=== PATIENT | female | born 1940 | race Caucasian/White ===

== ENCOUNTER 2016-10-11 17:09 | Inpatient (IN) ==
[2016-10-11] MEDS ORDERED: Nitroglycerin 0.4 MG TAB.SUBL SL PRN (17:55)
[2016-10-11] MEDS ORDERED: PredniSONE 10 MG TABLET PO SCH (18:00)
[2016-10-11] MEDS ORDERED: NON-FORMULARY MEDICATION 1 EACH EACH (Formoterol Fumarate [Perforomist] 20 MCG) IH SCH (18:00)
[2016-10-11] MEDS ORDERED: NON-FORMULARY MEDICATION 1 EACH EACH (Oxygen [Oxygen] 2 L) NS SCH (18:00)
[2016-10-11] MEDS: Ipratropium Neb 0.5 MG NEBULIZER IH SCH ×2 (18:48→22:43)
[2016-10-11] MEDS ORDERED: GuaiFENesin/Codeine Oral Soln 5 ML UDC PO PRN (19:23)
[2016-10-11] MEDS: *HR* LORazepam 0.5 MG TABLET PO SCH (21:21)
[2016-10-11] MEDS: Levalbuterol Neb 1.25 MG/3 ML IH SCH (22:43)
[2016-10-12] MEDS: Levalbuterol Neb 1.25 MG/3 ML IH SCH ×6 (00:03→21:15)
[2016-10-12] MEDS: Ipratropium Neb 0.5 MG NEBULIZER IH SCH ×6 (00:03→21:15)
[2016-10-12 05:39] LABS: Basophils % 0.1 %; Eosinophils % 0.2 %; Hematocrit 29.8 % (35.3-44.9); Hemoglobin 9.7 g/dL (11.5-15.4); Immature Granulocytes % 1.7 % (0-4); Lymphocytes % 18.6 %; Mean Corpuscular HGB Conc 32.6 g/dL (31.6-35.5); Mean Corpuscular Hemoglobin 31.6 pg (28.0-33.3); Mean Corpuscular Volume 97.1 fL (83.0-100.0); Mean Platelet Volume 8.9 fL (9.4-12.4); Monocytes # 0.9 K/mcL (0.0-1.3); Monocytes % 8.4 %; Neutrophils # 7.7 K/mcL (1.6-8.9); Platelet Count 204 K/mcL (140-400); Red Blood Count 3.07 M/mcL (3.82-4.97); Red Cell Distribution Width 12.3 % (11.5-14.5)
[2016-10-12 05:48] LABS: BUN/Creatinine Ratio 28 (6-26); Blood Urea Nitrogen 20 mg/dL (7-20); Calcium 8.9 mg/dL (8.6-10.8); Carbon Dioxide 34 mEq/L (19-29); Chloride 94 mEq/L (98-109); Glucose 136 mg/dL (70-99); Osmolality,Calculated 283 (280-300); Potassium 4.5 mEq/L (3.5-4.5); Sodium 134 mEq/L (136-145); eGFR For African Americans > 60 (> 60); eGFR For Non-African Americans > 60 (> 60)
[2016-10-12] MEDS ORDERED: [UNRECOGNIZED DRUG - OTHER] IH SCH (06:00)
[2016-10-12] MEDS: FORMOTEROL IH SCH ×2 (06:36→19:17)
[2016-10-12] MEDS: Aspirin Enteric Coated 81 MG Tablet PO SCH (08:52)
[2016-10-12] MEDS: Furosemide 20 MG TABLET PO SCH (08:52)
[2016-10-12] MEDS: Multivit/Ca/Min/Fe/FA 1 TAB TABLET PO SCH (08:52)
[2016-10-12] MEDS: Loratadine 10 MG TABLET PO SCH (08:53)
[2016-10-12] MEDS: Metoprolol XL (24 HR) Succ 50 MG TAB.ER.24H PO SCH (08:53)
[2016-10-12] MEDS: *HR* LORazepam 0.5 MG TABLET PO SCH ×2 (08:53→21:15)
[2016-10-12] MEDS: PredniSONE 10 MG TABLET PO SCH (08:54)
[2016-10-12] MEDS: VITAMIN D3 PO SCH (08:54)
[2016-10-12] MEDS: CALCIUM CARBONATE PO SCH (08:54)
[2016-10-12] MEDS: GuaiFENesin/Codeine Oral Soln 5 ML UDC PO PRN ×2 (08:59→21:15)
[2016-10-12] MEDS: Fluticasone Propionate Nasal 50 MCG/SPRAY BOTTLE NS SCH (09:00)
--- NOTE | 2016-10-12 13:17 | Internal Med History&Physical ---
Date of Encounter: 10/12/16 Time of Encounter: 13:15 Assessment and Plan (1) Acute on chronic congestive heart failure Current visit: Yes Status: Acute Patient was diagnosed with congestive heart failure she has been diuresed and according to her her breathing is probably close to baseline Qualifiers: Congestive heart failure type: diastolic Qualified Code(s): I50.33 - Acute on chronic diastolic (congestive) heart failure (2) Acute and chronic respiratory failure Current visit: Yes Status: Chronic Bid COPD by history. Patient is oxygen dependent Qualifiers: Respiratory failure complication: hypoxia and hypercapnia Qualified Code(s) : J96.21 - Acute and chronic respiratory failure with hypoxia; J96.22 - Acute and chronic respiratory failure with hypercapnia Internal Medicine - H&P: HPI Chief complaint: Patient was deconditioned from COPD and CHF. Admitted From: Hospital to Hospital Transfer Plans for Post Hospital Care: Home History of present illness: Ms. Currie is a 75 year old female Recent severe for OT and PT increase her strength and endurance. Past Med Surg Social Fam HX - Past Medical History Medical history: CHF, COPD, diabetes, hyperlipidemia, hypertension, myocardial infarction Psychiatric history: anxiety - Past Surgical History Surgical History: angioplasty/stent, appendectomy, hysterectomy - Social History Smoking Status: Former smoker Smokeless Tobacco Status: No Alcohol use: none Drug use: none - Family History Father Living Status: Hx Family Cardiac Disorders: Yes Mother Living Status: Hx Family Cardiac Disorders: Yes Hx Family Respiratory Disorders: Yes Hx Family GI Disorders: Yes Internal Medicine - H&P: Meds Aspirin Enteric Coated [Aspirin EC] 81 mg PO DAILY 09/07/15 [History] Calcium Carbonate/Vitamin D3 [Calcium 600-Vit D3 800 Tablet] 1 each PO DAILY 10/22 [History] Clopidogrel [Plavix] 75 mg PO DAILY 09/07/15 [History] Furosemide [Lasix] 20 mg PO QAM 09/07/15 [History] HydrALAZINE 50 mg PO BID 09/07/15 [History] Levalbuterol Neb [Xopenex Neb] 1.25 mg IH Q4HR 09/07/15 [History] Loratadine [Claritin] 10 mg PO DAILY 09/07/15 [History] Losartan [Cozaar] 50 mg PO DAILY 09/07/15 [History] Multivitamin [Multi-Day Vitamins] 1 each PO DAILY 09/07/15 [History] Nitroglycerin [Nitrostat] 0.4 mg SL AD PRN 09/07/15 [History] Pravastatin Sodium [Pravachol] 40 mg PO DAILY 09/07/15 [History] Sotalol [Betapace] 80 mg PO Q12HR 09/07/15 [History] Fluticasone Propionate Nasal [Flonase] 50 mcg NS DAILY 05/08/16 [History] LORazepam [Ativan] 0.5 mg PO BID 05/08/16 [History] Metoprolol XL (24 HR) Succ [Toprol Xl] 50 mg PO DAILY 05/08/16 [History] Oxygen 2 l NS CONT 05/08/16 [History] GuaiFENesin ER [Mucinex] 600 mg PO BID PRN #20 tbbp.12hr 05/11/16 [Rx] HYDROcodone/Acet 5/325 mg [[place] 5-325 mg] 1 tab PO Q6HR PRN #15 tablet [Rx] Formoterol Fumarate [Perforomist] 20 mcg IH Q4H 10/03/16 [History] Ipratropium Neb [Atrovent Neb] 0.5 mg IH Q4H 10/03/16 [History] Tizanidine HCl 2 mg PO TID PRN 10/03/16 [History] PredniSONE 10 mg PO TAPER #30 tablet 10/07/16 [Rx] Allergies JESSICA Inhibitors Allergy (Verified 05/08/16 18:41) See Comments budesonide [From Symbicort] Allergy (Verified 05/08/16 18:41) Swelling of Lip/Tongue/Throat Cyclobenzaprine [From Flexeril] Allergy (Verified 05/08/16 18:41) Anaphylaxis ethacrynic acid [From Edecrin] Allergy (Verified 05/08/16 18:41) See Comments lisinopril [From Zestoretic] Allergy (Verified 05/08/16 18:41) See Comments moxifloxacin [From Avelox] Allergy (Verified 05/08/16 18:41) See Comments amlodipine [From Norvasc] Adverse Reaction (Verified 05/08/16 18:41) Diarrhea aspirin Adverse Reaction (Verified 05/08/16 18:41) See Comments azithromycin [From Zithromax] Adverse Reaction (Verified 05/08/16 18:41) Diarrhea citalopram [From Celexa] Adverse Reaction (Verified 05/08/16 18:41) See Comments fluticasone [From Advair Diskus] Adverse Reaction (Verified 05/08/16 18:41) Confusion Formoterol [From Dulera] Adverse Reaction (Verified 05/08/16 18:41) Muscle Pain gabapentin [From Neurontin] Adverse Reaction (Verified 05/08/16 18:41) Headache hydrochlorothiazide Adverse Reaction (Verified 05/08/16 18:41) See Comments levofloxacin [From Levaquin] Adverse Reaction (Verified 05/08/16 18:41) See Comments losartan [Losartan] Adverse Reaction (Verified 05/08/16 18:41) Diarrhea mometasone furoate [From Dulera] Adverse Reaction (Verified 05/08/16 18:41) Muscle Pain ofloxacin Adverse Reaction (Verified 05/08/16 18:41) Headache prednisone Adverse Reaction (Verified 05/08/16 18:41) See Comments rofecoxib [From Vioxx] Adverse Reaction (Verified 05/08/16 18:41) Nausea salmeterol [From Advair Diskus] Adverse Reaction (Verified 05/08/16 18:41) Confusion Serotonin 5HT-3 Antagonists Adverse Reaction (Verified 05/08/16 18:41) See Comments Sulfa (Sulfonamide Antibiotics) Adverse Reaction (Verified 05/08/16 18:41) Nausea tiotropium [From Spiriva with HandiHaler] Adverse Reaction (Verified 05/08/16 18 :41) See Comments tramadol Adverse Reaction (Verified 05/08/16 18:41) See Comments All Systems PM: A 10-system review of systems was performed and is negative for pertinent findings except as documented above in the HPI. - Constitutional Vitals: Temp Pulse Resp BP Pulse Ox 98.2 F 99 16 136/82 97 10/12/16 11:48 10/12/16 11:48 10/12/16 11:48 10/12/16 11:48 10/12/16 11:48 - Head Head exam: Present: atraumatic, normocephalic - Neck Neck exam general surgery: Present: supple, trachea midline. Absent: lymphadenopathy - Respiratory Respiratory exam: Present: decreased breath sounds, CTAB, prolonged expiratory phase. Absent: accessory muscle use, rales, rhonchi, wheezes Additional comments: Patient has very diminished breath sounds. They are clear though right now I did not appreciate any rhonchi or wheezing - Cardiovascular Cardiovascular exam: Present: RRR, +S1, +S2. Absent: diastolic murmur, gallop, rubs, systolic murmur Internal Med - H&P Results - Labs CBC & Chem 7: 10/12/16 05:20 10/12/16 05:20 Labs: Short CBC 10/12/16 Range/Units 05:20 WBC 10.8 (4.3-11.1) K/mcL Hgb 9.7 L (11.5-15.4) g/dL Hct 29.8 L (35.3-44.9) % Plt Count 204 (140-400) K/mcL Neutrophils # 7.7 (1.6-8.9) K/mcL BMP 10/12/16 05:20 Sodium 134 L Potassium 4.5 Chloride 94 L Carbon Dioxide 34 H BUN 20 Creatinine 0.71 Glucose 136 H Calcium 8.9 Lab appears to be tolerable - VTE Documentation of Mechanical Device: Graduated compression elastic hosiery
[2016-10-12] MEDS: *HR* HYDROcodone/Acet 5/325 mg TABLET PO PRN (21:15)
[2016-10-13] MEDS: Ipratropium Neb 0.5 MG NEBULIZER IH SCH ×6 (00:23→20:41)
[2016-10-13] MEDS: Levalbuterol Neb 1.25 MG/3 ML IH SCH ×6 (00:23→20:41)
[2016-10-13] MEDS: *HR* HYDROcodone/Acet 5/325 mg TABLET PO PRN ×2 (06:47→20:40)
[2016-10-13] MEDS: FORMOTEROL IH SCH ×2 (06:47→18:46)
[2016-10-13] MEDS: PredniSONE 10 MG TABLET PO SCH (08:32)
[2016-10-13] MEDS: Metoprolol XL (24 HR) Succ 50 MG TAB.ER.24H PO SCH (08:32)
[2016-10-13] MEDS: Multivit/Ca/Min/Fe/FA 1 TAB TABLET PO SCH (08:33)
[2016-10-13] MEDS: Loratadine 10 MG TABLET PO SCH (08:33)
[2016-10-13] MEDS: Aspirin Enteric Coated 81 MG Tablet PO SCH (08:33)
[2016-10-13] MEDS: Furosemide 20 MG TABLET PO SCH (08:33)
[2016-10-13] MEDS: *HR* LORazepam 0.5 MG TABLET PO SCH ×2 (08:33→20:40)
[2016-10-13] MEDS: Fluticasone Propionate Nasal 50 MCG/SPRAY BOTTLE NS SCH (08:34)
[2016-10-13] MEDS: VITAMIN D3 PO SCH (08:35)
[2016-10-13] MEDS: CALCIUM CARBONATE PO SCH (08:35)
[2016-10-13] MEDS: GuaiFENesin/Codeine Oral Soln 5 ML UDC PO PRN (20:41)
[2016-10-14] MEDS: Ipratropium Neb 0.5 MG NEBULIZER IH SCH ×6 (01:11→22:16)
[2016-10-14] MEDS: Levalbuterol Neb 1.25 MG/3 ML IH SCH ×6 (01:11→22:16)
[2016-10-14] MEDS: FORMOTEROL IH SCH ×2 (06:45→20:06)
[2016-10-14] MEDS: *HR* HYDROcodone/Acet 5/325 mg TABLET PO PRN (06:45)
[2016-10-14] MEDS: PredniSONE 10 MG TABLET PO SCH (08:22)
[2016-10-14] MEDS: Multivit/Ca/Min/Fe/FA 1 TAB TABLET PO SCH (08:22)
[2016-10-14] MEDS: Metoprolol XL (24 HR) Succ 50 MG TAB.ER.24H PO SCH (08:23)
[2016-10-14] MEDS: Loratadine 10 MG TABLET PO SCH (08:23)
[2016-10-14] MEDS: Furosemide 20 MG TABLET PO SCH (08:23)
[2016-10-14] MEDS: Aspirin Enteric Coated 81 MG Tablet PO SCH (08:23)
[2016-10-14] MEDS: *HR* LORazepam 0.5 MG TABLET PO SCH ×2 (08:23→20:14)
[2016-10-14] MEDS: CALCIUM CARBONATE PO SCH (08:24)
[2016-10-14] MEDS: VITAMIN D3 PO SCH (08:24)
[2016-10-14] MEDS: Fluticasone Propionate Nasal 50 MCG/SPRAY BOTTLE NS SCH (08:24)
--- NOTE | 2016-10-14 17:54 | Internal Med Progress Note ---
Date of Encounter: 10/14/16 Time of Encounter: 17:51 - Assessment and plan (1) Physical deconditioning Current Visit: Yes Status: Chronic Assessment and plan: PT OT continue to work on improving ADL, transfer, endurance. Patient and bladed up-and-down 5 steps using bilateral handrails and SBA. Patient perform steps safely . (2) Generalized weakness Current Visit: No Status: Chronic - Time Spent With Patient less than 15 minutes - Subjective Interval history: Feeling stronger. No shortness of breath. No chest pain. Complains of constipation. No abdominal pain. - Constitutional Vitals: Temp Pulse Resp BP Pulse Ox 97.4 F L 60 16 113/63 96 10/14/16 08:01 10/14/16 08:01 10/14/16 08:01 10/14/16 08:01 10/14/16 08:01 General appearance: Present: A&O X 3, pleasant, no acute distress - Respiratory Respiratory exam: Present: CTAB. Absent: accessory muscle use, rales, rhonchi, wheezes - Cardiovascular Cardiovascular exam: Present: RRR, +S1, +S2. Absent: diastolic murmur, gallop, rubs, systolic murmur - GI/Abdominal GI/Abdominal exam: Present: normal bowel sounds, soft, no peritoneal signs. Absent: distended, tenderness - Extremities Exam Extremities exam: Present: pedal edema, warm, radial pulses palpable and symetrical. Absent: calf tenderness, cyanotic - Neurological Exam Neurological exam: Present: oriented X3, no focal deficits. Absent: pronater drift, facial droop, speech deficit - Skin Skin exam: Present: dry, intact Internal Medicine: Result - Labs CBC & Chem 7: 10/12/16 05:20 10/12/16 05:20 - ABG Interpretation ABG results: PT/INR, D-dimer PT 11.0 Seconds (9.4-12.1) 10/12/16 05:20 - VTE Documentation of Mechanical Device: Graduated compression elastic hosiery Consult Discharge Plan - Plan Referrals: Elizabeth Dyson MD [Primary Care Provider] -
[2016-10-14] MEDS ORDERED: D5% in Water 1,000 ML IV PRN (18:17)
[2016-10-14] MEDS ORDERED: Dextrose Gel 15 GM PO PRN ×2 (18:17)
[2016-10-14] MEDS ORDERED: *HR* Dextrose 50 % in Water (Syg) 50 ML SYRINGE IVP PRN (18:17)
[2016-10-14] MEDS: GuaiFENesin/Codeine Oral Soln 5 ML UDC PO PRN (20:14)
[2016-10-14] MEDS: Insulin LISPRO 300 UNITS/3 ML VIAL SQ SCH (22:16)
[2016-10-15] MEDS: Levalbuterol Neb 1.25 MG/3 ML IH SCH ×6 (06:37→22:00)
[2016-10-15] MEDS: Ipratropium Neb 0.5 MG NEBULIZER IH SCH ×6 (06:37→22:00)
[2016-10-15] MEDS: FORMOTEROL IH SCH ×2 (06:40→20:03)
[2016-10-15] MEDS: PredniSONE 10 MG TABLET PO SCH (08:54)
[2016-10-15] MEDS: Metoprolol XL (24 HR) Succ 50 MG TAB.ER.24H PO SCH (08:54)
[2016-10-15] MEDS: Loratadine 10 MG TABLET PO SCH (08:54)
[2016-10-15] MEDS: Aspirin Enteric Coated 81 MG Tablet PO SCH (08:54)
[2016-10-15] MEDS: Furosemide 20 MG TABLET PO SCH (08:54)
[2016-10-15] MEDS: *HR* LORazepam 0.5 MG TABLET PO SCH ×2 (08:54→20:18)
[2016-10-15] MEDS: Multivit/Ca/Min/Fe/FA 1 TAB TABLET PO SCH (08:54)
[2016-10-15] MEDS: CALCIUM CARBONATE PO SCH (08:55)
[2016-10-15] MEDS: VITAMIN D3 PO SCH (08:55)
[2016-10-15] MEDS: Fluticasone Propionate Nasal 50 MCG/SPRAY BOTTLE NS SCH (08:58)
[2016-10-15] MEDS: Insulin LISPRO 300 UNITS/3 ML VIAL SQ SCH ×4 (09:00→20:46)
[2016-10-15] MEDS: GuaiFENesin/Codeine Oral Soln 5 ML UDC PO PRN ×2 (09:02→20:19)
--- NOTE | 2016-10-15 09:09 | Internal Med Progress Note ---
Date of Encounter: 10/15/16 Time of Encounter: 09:08 - Assessment and plan (1) Physical deconditioning Current Visit: Yes Status: Chronic Assessment and plan: PT OT continue to work on improving ADL, transfer, endurance. Patient and bladed up-and-down 5 steps using bilateral handrails and SBA. Patient perform steps safely . (2) Generalized weakness Current Visit: No Status: Chronic - Time Spent With Patient less than 15 minutes - Subjective Interval history: Feeling stronger. No shortness of breath. No chest pain. Complains of constipation. No abdominal pain. - Constitutional Vitals: Temp Pulse Resp BP Pulse Ox 97.7 F 59 18 124/58 98 10/15/16 07:00 10/15/16 07:00 10/15/16 07:00 10/15/16 07:00 10/15/16 07:00 General appearance: Present: A&O X 3, pleasant, no acute distress - Respiratory Respiratory exam: Present: CTAB. Absent: accessory muscle use, rales, rhonchi, wheezes - Cardiovascular Cardiovascular exam: Present: RRR, +S1, +S2. Absent: diastolic murmur, gallop, rubs, systolic murmur - GI/Abdominal GI/Abdominal exam: Present: normal bowel sounds, soft, no peritoneal signs. Absent: distended, tenderness Internal Medicine: Result - Labs CBC & Chem 7: 10/12/16 05:20 10/12/16 05:20 - ABG Interpretation ABG results: PT/INR, D-dimer PT 11.0 Seconds (9.4-12.1) 10/12/16 05:20 - VTE Documentation of Mechanical Device: Graduated compression elastic hosiery Consult Discharge Plan - Plan Referrals: Elizabeth Dyson MD [Primary Care Provider] -
[2016-10-15] MEDS: *HR* HYDROcodone/Acet 5/325 mg TABLET PO PRN (13:22)
[2016-10-16] MEDS: Ipratropium Neb 0.5 MG NEBULIZER IH SCH ×6 (02:33→22:30)
[2016-10-16] MEDS: Levalbuterol Neb 1.25 MG/3 ML IH SCH ×6 (02:33→22:30)
[2016-10-16 05:25] LABS: Basophils % 0.1 %; Eosinophils # 0.1 K/mcL (0.0-0.6); Eosinophils % 0.6 %; Hematocrit 32.8 % (35.3-44.9); Hemoglobin 10.7 g/dL (11.5-15.4); Immature Granulocytes % 0.8 % (0-4); Lymphocytes # 2.3 K/mcL (0.6-4.6); Lymphocytes % 24.2 %; Mean Corpuscular HGB Conc 32.6 g/dL (31.6-35.5); Mean Corpuscular Hemoglobin 32.3 pg (28.0-33.3); Mean Corpuscular Volume 99.1 fL (83.0-100.0); Mean Platelet Volume 9.3 fL (9.4-12.4); Monocytes # 1.1 K/mcL (0.0-1.3); Monocytes % 10.9 %; Neutrophils # 6.1 K/mcL (1.6-8.9); Platelet Count 221 K/mcL (140-400); Red Blood Count 3.31 M/mcL (3.82-4.97); Red Cell Distribution Width 13.2 % (11.5-14.5); Segmented Neutrophils % 63.4 %
[2016-10-16 05:41] LABS: BUN/Creatinine Ratio 38 (6-26); Blood Urea Nitrogen 26 mg/dL (7-20); Calcium 9.3 mg/dL (8.6-10.8); Carbon Dioxide 31 mEq/L (19-29); Chloride 96 mEq/L (98-109); Glucose 111 mg/dL (70-99); Osmolality,Calculated 283 (280-300); Potassium 4.8 mEq/L (3.5-4.5); Sodium 134 mEq/L (136-145); eGFR For African Americans > 60 (> 60); eGFR For Non-African Americans > 60 (> 60)
[2016-10-16] MEDS: Insulin LISPRO 300 UNITS/3 ML VIAL SQ SCH ×4 (07:37→22:22)
[2016-10-16] MEDS: FORMOTEROL IH SCH ×2 (07:37→20:25)
[2016-10-16] MEDS: Aspirin Enteric Coated 81 MG Tablet PO SCH (07:47)
[2016-10-16] MEDS: *HR* LORazepam 0.5 MG TABLET PO SCH ×2 (07:47→20:56)
[2016-10-16] MEDS: Metoprolol XL (24 HR) Succ 50 MG TAB.ER.24H PO SCH (07:47)
[2016-10-16] MEDS: PredniSONE 10 MG TABLET PO SCH (07:47)
[2016-10-16] MEDS: Multivit/Ca/Min/Fe/FA 1 TAB TABLET PO SCH (07:48)
[2016-10-16] MEDS: Fluticasone Propionate Nasal 50 MCG/SPRAY BOTTLE NS SCH (07:48)
[2016-10-16] MEDS: Furosemide 20 MG TABLET PO SCH (07:48)
[2016-10-16] MEDS: GuaiFENesin/Codeine Oral Soln 5 ML UDC PO PRN ×2 (07:53→20:56)
[2016-10-16] MEDS: VITAMIN D3 PO SCH (07:54)
[2016-10-16] MEDS: CALCIUM CARBONATE PO SCH (07:54)
[2016-10-16] MEDS: Loratadine 10 MG TABLET PO SCH ×2 (07:55→09:54)
--- NOTE | 2016-10-16 13:26 | Internal Med Progress Note ---
Date of Encounter: 10/16/16 Time of Encounter: 13:24 - Assessment and plan (1) Acute on chronic congestive heart failure Current Visit: Yes Status: Acute Assessment and plan: Patient is stable at the moment no evidence of acute CHF Qualifiers: Congestive heart failure type: diastolic Qualified Code(s): I50.33 - Acute on chronic diastolic (congestive) heart failure (2) Acute and chronic respiratory failure Current Visit: Yes Status: Chronic Assessment and plan: She does have end-stage COPD which currently is stable Qualifiers: Respiratory failure complication: hypoxia and hypercapnia Qualified Code(s) : J96.21 - Acute and chronic respiratory failure with hypoxia; J96.22 - Acute and chronic respiratory failure with hypercapnia - Time Spent With Patient less than 15 minutes - Subjective Interval history: Patient denies any immediate need. Previously appears to be satisfactory and she will probably be walking 120 feet with her walker. She will be discharged tomorrow in the company of her family - Constitutional Vitals: Temp Pulse Resp BP Pulse Ox 98.3 F 67 16 132/67 98 10/16/16 07:14 10/16/16 07:14 10/16/16 07:14 10/16/16 07:14 10/16/16 07:14 General appearance: Present: A&O X 3, pleasant, no acute distress - Head Head exam: Present: atraumatic, normal inspection, normocephalic - Neck Neck exam general surgery: Present: supple, trachea midline. Absent: lymphadenopathy - Respiratory Respiratory exam: Present: CTAB. Absent: accessory muscle use, rales, rhonchi, wheezes - Cardiovascular Cardiovascular exam: Present: RRR, +S1, +S2. Absent: diastolic murmur, gallop, rubs, systolic murmur Internal Medicine: Result - Labs CBC & Chem 7: 10/16/16 04:40 10/16/16 04:40 Labs: Short CBC 10/16/16 Range/Units 04:40 WBC 9.6 (4.3-11.1) K/mcL Hgb 10.7 L (11.5-15.4) g/dL Hct 32.8 L (35.3-44.9) % Plt Count 221 (140-400) K/mcL Neutrophils # 6.1 (1.6-8.9) K/mcL BMP 10/16/16 04:40 Sodium 134 L Potassium 4.8 H Chloride 96 L Carbon Dioxide 31 H BUN 26 H Creatinine 0.69 Glucose 111 H Calcium 9.3 No significant changes in her lab. - ABG Interpretation ABG results: PT/INR, D-dimer PT 11.0 Seconds (9.4-12.1) 10/12/16 05:20 - VTE Documentation of Mechanical Device: Graduated compression elastic hosiery Consult Discharge Plan - Plan Referrals: Elizabeth Dyson MD [Primary Care Provider] -
[2016-10-16] MEDS: *HR* HYDROcodone/Acet 5/325 mg TABLET PO PRN ×2 (14:34→20:57)
[2016-10-17] MEDS: Ipratropium Neb 0.5 MG NEBULIZER IH SCH ×4 (00:53→12:55)
[2016-10-17] MEDS: Levalbuterol Neb 1.25 MG/3 ML IH SCH ×4 (00:53→12:56)
[2016-10-17] MEDS: FORMOTEROL IH SCH (06:55)
[2016-10-17 07:41] VITALS: BP 125/70
[2016-10-17] MEDS: PredniSONE 10 MG TABLET PO SCH (08:00)
[2016-10-17] MEDS: *HR* LORazepam 0.5 MG TABLET PO SCH (08:00)
[2016-10-17] MEDS: Insulin LISPRO 300 UNITS/3 ML VIAL SQ SCH ×2 (08:00→12:40)
[2016-10-17] MEDS: Metoprolol XL (24 HR) Succ 50 MG TAB.ER.24H PO SCH (08:00)
[2016-10-17] MEDS: Aspirin Enteric Coated 81 MG Tablet PO SCH (08:01)
[2016-10-17] MEDS: Furosemide 20 MG TABLET PO SCH (08:01)
[2016-10-17] MEDS: Multivit/Ca/Min/Fe/FA 1 TAB TABLET PO SCH (08:01)
[2016-10-17] MEDS: Loratadine 10 MG TABLET PO SCH (08:04)
[2016-10-17] MEDS: VITAMIN D3 PO SCH (08:05)
[2016-10-17] MEDS: CALCIUM CARBONATE PO SCH (08:05)
[2016-10-17] MEDS: Fluticasone Propionate Nasal 50 MCG/SPRAY BOTTLE NS SCH (08:05)
--- NOTE | 2016-10-17 12:01 | Discharge Summary ---
Date of Encounter: 10/17/16 Time of Encounter: 11:59 - Discharge Diagnosis (1) Acute on chronic congestive heart failure Priority: Primary Status: Acute Comments: Much improved to yellow lungs are distant decreased but clear. I have counseled her that should her leg started to swell or she cannot lie flat regained 3-4 pounds she needs to go to the emergency room. Qualifiers: Congestive heart failure type: diastolic Qualified Code(s): I50.33 - Acute on chronic diastolic (congestive) heart failure (2) Acute and chronic respiratory failure Priority: Primary Status: Chronic Comments: Currently stable lungs are clear Qualifiers: Respiratory failure complication: hypoxia and hypercapnia Qualified Code(s) : J96.21 - Acute and chronic respiratory failure with hypoxia; J96.22 - Acute and chronic respiratory failure with hypercapnia - Discharge Medications Home Medications: Aspirin Enteric Coated [Aspirin EC] 81 mg PO DAILY 09/07/15 [History] Calcium Carbonate/Vitamin D3 [Calcium 600-Vit D3 800 Tablet] 1 each PO DAILY 10/22 [History] Clopidogrel [Plavix] 75 mg PO DAILY 09/07/15 [History] Furosemide [Lasix] 20 mg PO QAM 09/07/15 [History] HydrALAZINE 50 mg PO BID 09/07/15 [History] Levalbuterol Neb [Xopenex Neb] 1.25 mg IH Q4HR 09/07/15 [History] Loratadine [Claritin] 10 mg PO DAILY 09/07/15 [History] Losartan [Cozaar] 50 mg PO DAILY 09/07/15 [History] Multivitamin [Multi-Day Vitamins] 1 each PO DAILY 09/07/15 [History] Nitroglycerin [Nitrostat] 0.4 mg SL AD PRN 09/07/15 [History] Pravastatin Sodium [Pravachol] 40 mg PO DAILY 09/07/15 [History] Sotalol [Betapace] 80 mg PO Q12HR 09/07/15 [History] Fluticasone Propionate Nasal [Flonase] 50 mcg NS DAILY 05/08/16 [History] LORazepam [Ativan] 0.5 mg PO BID 05/08/16 [History] Metoprolol XL (24 HR) Succ [Toprol Xl] 50 mg PO DAILY 05/08/16 [History] Oxygen 2 l NS CONT 05/08/16 [History] GuaiFENesin ER [Mucinex] 600 mg PO BID PRN #20 tbbp.12hr 05/11/16 [Rx] HYDROcodone/Acet 5/325 mg [[place] 5-325 mg] 1 tab PO Q6HR PRN #15 tablet [Rx] Formoterol Fumarate [Perforomist] 20 mcg IH Q4H 10/03/16 [History] Ipratropium Neb [Atrovent Neb] 0.5 mg IH Q4H 10/03/16 [History] Tizanidine HCl 2 mg PO TID PRN 10/03/16 [History] PredniSONE 10 mg PO TAPER #30 tablet 10/07/16 [Rx] Allergies/Adverse Reactions: Allergies JESSICA Inhibitors Allergy (Verified 05/08/16 18:41) See Comments budesonide [From Symbicort] Allergy (Verified 05/08/16 18:41) Swelling of Lip/Tongue/Throat Cyclobenzaprine [From Flexeril] Allergy (Verified 05/08/16 18:41) Anaphylaxis ethacrynic acid [From Edecrin] Allergy (Verified 05/08/16 18:41) See Comments lisinopril [From Zestoretic] Allergy (Verified 05/08/16 18:41) See Comments moxifloxacin [From Avelox] Allergy (Verified 05/08/16 18:41) See Comments amlodipine [From Norvasc] Adverse Reaction (Verified 05/08/16 18:41) Diarrhea aspirin Adverse Reaction (Verified 05/08/16 18:41) See Comments azithromycin [From Zithromax] Adverse Reaction (Verified 05/08/16 18:41) Diarrhea citalopram [From Celexa] Adverse Reaction (Verified 05/08/16 18:41) See Comments fluticasone [From Advair Diskus] Adverse Reaction (Verified 05/08/16 18:41) Confusion Formoterol [From Dulera] Adverse Reaction (Verified 05/08/16 18:41) Muscle Pain gabapentin [From Neurontin] Adverse Reaction (Verified 05/08/16 18:41) Headache hydrochlorothiazide Adverse Reaction (Verified 05/08/16 18:41) See Comments levofloxacin [From Levaquin] Adverse Reaction (Verified 05/08/16 18:41) See Comments losartan [Losartan] Adverse Reaction (Verified 05/08/16 18:41) Diarrhea mometasone furoate [From Dulera] Adverse Reaction (Verified 05/08/16 18:41) Muscle Pain ofloxacin Adverse Reaction (Verified 05/08/16 18:41) Headache prednisone Adverse Reaction (Verified 05/08/16 18:41) See Comments rofecoxib [From Vioxx] Adverse Reaction (Verified 05/08/16 18:41) Nausea salmeterol [From Advair Diskus] Adverse Reaction (Verified 05/08/16 18:41) Confusion Serotonin 5HT-3 Antagonists Adverse Reaction (Verified 05/08/16 18:41) See Comments Sulfa (Sulfonamide Antibiotics) Adverse Reaction (Verified 05/08/16 18:41) Nausea tiotropium [From Spiriva with HandiHaler] Adverse Reaction (Verified 05/08/16 18 :41) See Comments tramadol Adverse Reaction (Verified 05/08/16 18:41) See Comments Date of admission: 10/11/16 17:10 Primary care physician: Elizabeth Dyson Consults: 10/11/16 17:25 Consult to Occupational Therapy [CONS] Routine Comment: Evaluate, develop and implement POC Consult to Physical Therapy [CONS] Routine Comment: Evaluate, develop and implement POC Consult to Recreational Therapy [CONS] Routine Comment: Evaluate, develop and implement POC Consult to Propulsion Motor [employer] Generator Rep[employer]r [CONS] Routine Reason for SW Consult: Rehab Discharging clinician: Jonel Naranjo Anticipated date of discharge: 10/17/16 - Patient Status Disposition: Home Health Service Condition: Fair Functional capacity at discharge: uses cane/walker Overall status at discharge: patient is progressing back to baseline - Discharge Instructions Instructions: Chronic Obstructive Pulmonary Disease (DC), Diabetic Hyperglycemia (DC) Follow Up With: Elizabeth Dyson MD [Primary Care Provider] - 10/24/16 10:45 am - Diet and Activity Activity: ambulate only with your walker Diet: advance to your usual diet Interval History: Patient was admitted for deconditioning due to recent respiratory failure secondary to CHF and COPD. She is much improved. She is ambulating about the unit with her walker and is stable at this point Hospital course: Ms. Currie is a 75 year old female - Time Spent with Patient Total time spent providing and/or coordinating discharge services: Less than 30 minutes - Constitutional Vitals: Temp Pulse Resp BP Pulse Ox 98.0 F 65 18 125/70 92 L 10/17/16 07:00 10/17/16 07:00 10/17/16 07:00 10/17/16 07:00 10/17/16 07:00 General appearance: Present: A&O X 3, pleasant, no acute distress - Head Head exam: Present: atraumatic, normal inspection, normocephalic - Respiratory Respiratory exam: Present: CTAB. Absent: accessory muscle use, rales, rhonchi, wheezes - Cardiovascular Cardiovascular exam: Present: RRR, +S1, +S2. Absent: diastolic murmur, gallop, rubs, systolic murmur - GI/Abdominal GI/Abdominal exam: Present: normal bowel sounds, soft, no peritoneal signs. Absent: distended, tenderness - VTE Documentation of Mechanical Device: Graduated compression elastic hosiery
--- NOTE | 2016-10-17 12:04 | Physician Discharge Referral ---
Home Health/Hosp Referral Info Transfer to: Home Health Provider in Charge Post Discharge: PCP - Diagnosis (1) Acute on chronic congestive heart failure Priority: Primary Status: Acute (2) Acute and chronic respiratory failure Priority: Primary Status: Chronic - Respiratory Orders Oxygen / L per min Smoking Cessation: Smoking cessation has been advised. For more information, call the [place] Tobacco Quit Line at 5-800-FPNJ-NOW. - Diet/Nutrition Diet/Nutrition Orders: Regular - Activity Activity Orders: Walker - Services Needed Following services are medically necessary services: Nursing, Physical Therapy - Transfer Medications Home Medications: Aspirin Enteric Coated [Aspirin EC] 81 mg PO DAILY 09/07/15 [History] Calcium Carbonate/Vitamin D3 [Calcium 600-Vit D3 800 Tablet] 1 each PO DAILY 10/22 [History] Clopidogrel [Plavix] 75 mg PO DAILY 09/07/15 [History] Furosemide [Lasix] 20 mg PO QAM 09/07/15 [History] HydrALAZINE 50 mg PO BID 09/07/15 [History] Levalbuterol Neb [Xopenex Neb] 1.25 mg IH Q4HR 09/07/15 [History] Loratadine [Claritin] 10 mg PO DAILY 09/07/15 [History] Losartan [Cozaar] 50 mg PO DAILY 09/07/15 [History] Multivitamin [Multi-Day Vitamins] 1 each PO DAILY 09/07/15 [History] Nitroglycerin [Nitrostat] 0.4 mg SL AD PRN 09/07/15 [History] Pravastatin Sodium [Pravachol] 40 mg PO DAILY 09/07/15 [History] Sotalol [Betapace] 80 mg PO Q12HR 09/07/15 [History] Fluticasone Propionate Nasal [Flonase] 50 mcg NS DAILY 05/08/16 [History] LORazepam [Ativan] 0.5 mg PO BID 05/08/16 [History] Metoprolol XL (24 HR) Succ [Toprol Xl] 50 mg PO DAILY 05/08/16 [History] Oxygen 2 l NS CONT 05/08/16 [History] GuaiFENesin ER [Mucinex] 600 mg PO BID PRN #20 tbbp.12hr 05/11/16 [Rx] HYDROcodone/Acet 5/325 mg [[place] 5-325 mg] 1 tab PO Q6HR PRN #15 tablet [Rx] Formoterol Fumarate [Perforomist] 20 mcg IH Q4H 10/03/16 [History] Ipratropium Neb [Atrovent Neb] 0.5 mg IH Q4H 10/03/16 [History] Tizanidine HCl 2 mg PO TID PRN 10/03/16 [History] PredniSONE 10 mg PO TAPER #30 tablet 10/07/16 [Rx] Allergies/Adverse Reactions: Allergies JESSICA Inhibitors Allergy (Verified 05/08/16 18:41) See Comments budesonide [From Symbicort] Allergy (Verified 05/08/16 18:41) Swelling of Lip/Tongue/Throat Cyclobenzaprine [From Flexeril] Allergy (Verified 05/08/16 18:41) Anaphylaxis ethacrynic acid [From Edecrin] Allergy (Verified 05/08/16 18:41) See Comments lisinopril [From Zestoretic] Allergy (Verified 05/08/16 18:41) See Comments moxifloxacin [From Avelox] Allergy (Verified 05/08/16 18:41) See Comments amlodipine [From Norvasc] Adverse Reaction (Verified 05/08/16 18:41) Diarrhea aspirin Adverse Reaction (Verified 05/08/16 18:41) See Comments azithromycin [From Zithromax] Adverse Reaction (Verified 05/08/16 18:41) Diarrhea citalopram [From Celexa] Adverse Reaction (Verified 05/08/16 18:41) See Comments fluticasone [From Advair Diskus] Adverse Reaction (Verified 05/08/16 18:41) Confusion Formoterol [From Dulera] Adverse Reaction (Verified 05/08/16 18:41) Muscle Pain gabapentin [From Neurontin] Adverse Reaction (Verified 05/08/16 18:41) Headache hydrochlorothiazide Adverse Reaction (Verified 05/08/16 18:41) See Comments levofloxacin [From Levaquin] Adverse Reaction (Verified 05/08/16 18:41) See Comments losartan [Losartan] Adverse Reaction (Verified 05/08/16 18:41) Diarrhea mometasone furoate [From Dulera] Adverse Reaction (Verified 05/08/16 18:41) Muscle Pain ofloxacin Adverse Reaction (Verified 05/08/16 18:41) Headache prednisone Adverse Reaction (Verified 05/08/16 18:41) See Comments rofecoxib [From Vioxx] Adverse Reaction (Verified 05/08/16 18:41) Nausea salmeterol [From Advair Diskus] Adverse Reaction (Verified 05/08/16 18:41) Confusion Serotonin 5HT-3 Antagonists Adverse Reaction (Verified 05/08/16 18:41) See Comments Sulfa (Sulfonamide Antibiotics) Adverse Reaction (Verified 05/08/16 18:41) Nausea tiotropium [From Spiriva with HandiHaler] Adverse Reaction (Verified 05/08/16 18 :41) See Comments tramadol Adverse Reaction (Verified 05/08/16 18:41) See Comments Certification: Further, I certify that my clinical findings support that this patient is homebound (i.e. absences from home require considerable and taxing effort and are for medical reasons or holiness services or infrequently or short duration when for other reasons) because: Homebound Reason: Patient requires assistance of a person or device to safely leave home Attestation: My signature below is to certify that this patient is under my care and that I, or nurse practitioner, or a physician's human resources executive assistant working with me, has a face-to -face encounter with this patient.
== END 2016-10-17 13:00 | disposition home health service (06) | DRG 945 ==
LOC: INPGRE 17:10
PROVIDERS: ADMIT Internal Medicine; ATTEND Internal Medicine

== ENCOUNTER 2018-06-23 13:32 | Inpatient (IN) ==
--- NOTE | 2018-06-23 14:13 | Emergency Department Note ---
Disposition Clinical Impression: Acute exacerbation of chronic obstructive airways disease Disposition: Admitted As Inpatient Condition: Serious Instructions: Chronic Obstructive Pulmonary Disease (ED) Referrals: Elizabeth Dyson MD [Primary Care Provider] - Forms: ED Satisfaction Letter General Adult HPI - General Chief complaint: ED Shortness of Breath/Dyspnea Stated complaint: SHORTNESS OF BREATH Time Seen by Provider: 06/23/18 13:32 Source: patient, EMS Limitations: no limitations Nursing Notes Reviewed: Yes Vital Signs Reviewed: Yes - History of Present Illness HPI Narrative: Patient presents today with CC of: Shortness of breath Patient describes issue began around 5 or 6 days ago patient noticed that she has had increasing cough and sputum production. She says typical of her COPD that she usually has. She is long-term smoker although quit smoking about 5 years ago. She does use nebulizers at home and is on home O2. She has not had any fever but her sputum has changed and she gets short of breath with exertion. She been urinating normally last admission she had for this was about 6 weeks ago. Patient denies any chest pain she denies any hemoptysis leg swelling or tenderness. Shortness of breath seemed to be progressing so she called the squad and was transported here to the emergency department. Pain Scale: 8 - Related Data Home Medications Medication Instructions Recorded Confirmed Aspirin Enteric Coated [Aspirin EC] 81 mg PO DAILY 09/07/15 04/04/18 Calcium Carbonate/Vitamin D3 1 each PO DAILY 09/07/15 04/04/18 [Calcium 600-Vit D3 800 Tablet] Clopidogrel [Plavix] 75 mg PO DAILY 09/07/15 04/04/18 HydrALAZINE 50 mg PO BID 09/07/15 04/04/18 Levalbuterol Neb [Xopenex Neb] 1.25 mg IH Q4HR 09/07/15 04/04/18 Loratadine [Claritin] 10 mg PO DAILY 09/07/15 04/04/18 Losartan [Cozaar] 100 mg PO DAILY 09/07/15 04/04/18 Multivitamin [Multi-Day Vitamins] 1 each PO DAILY 09/07/15 04/04/18 Nitroglycerin [Nitrostat] 0.4 mg SL AD PRN 09/07/15 04/04/18 Pravastatin Sodium [Pravachol] 40 mg PO DAILY 09/07/15 04/04/18 Sotalol [Betapace] 80 mg PO Q12HR 09/07/15 04/04/18 LORazepam [Ativan] 0.5 mg PO BID 05/08/16 04/04/18 Metoprolol XL (24 HR) Succ [Toprol 12.5 mg PO DAILY 05/08/16 04/04/18 Xl] Oxygen 2 l NS CONT 05/08/16 04/04/18 Formoterol Fumarate [Perforomist] 20 mcg IH BID 10/03/16 04/04/18 Acetaminophen [Tylenol] 1,000 mg PO TID 04/04/18 04/04/18 Previous Rx's Medication Instructions Recorded GuaiFENesin ER [Mucinex] 600 mg PO BID PRN #20 tbbp.12hr 05/11/16 Furosemide [Lasix] 40 mg PO BID #60 tablet 04/07/18 Cefdinir [Omnicef] 300 mg PO BID #20 capsule 05/10/18 Allergies Allergy/AdvReac Type Severity Reaction Status Date / Time JESSICA Inhibitors Allergy See Verified 04/04/18 05:22 Comments budesonide [From Symbicort] Allergy Swelling Verified 04/04/18 05:22 of Lip/Tongue/Throat Cyclobenzaprine Allergy Anaphylaxis Verified 04/04/18 05:22 [From Flexeril] ethacrynic acid Allergy See Verified 04/04/18 05:22 [From Edecrin] Comments lisinopril [From Zestoretic] Allergy See Verified 04/04/18 05:22 Comments moxifloxacin [From Avelox] Allergy See Verified 04/04/18 05:22 Comments amlodipine [From Norvasc] AdvReac Diarrhea Verified 04/04/18 05:22 aspirin AdvReac See Verified 04/04/18 05:22 Comments azithromycin [From Zithromax] AdvReac Diarrhea Verified 04/04/18 05:22 citalopram [From Celexa] AdvReac See Verified 04/04/18 05:22 Comments fluticasone AdvReac Confusion Verified 04/04/18 05:22 [From Advair Diskus] Formoterol [From Dulera] AdvReac Muscle Pain Verified 04/04/18 05:22 gabapentin [From Neurontin] AdvReac Headache Verified 04/04/18 05:22 hydrochlorothiazide AdvReac See Verified 04/04/18 05:22 Comments levofloxacin [From Levaquin] AdvReac See Verified 04/04/18 05:22 Comments losartan [Losartan] AdvReac Diarrhea Verified 04/04/18 05:22 mometasone furoate AdvReac Muscle Pain Verified 04/04/18 05:22 [From Dulera] ofloxacin AdvReac Headache Verified 04/04/18 05:22 prednisone AdvReac See Verified 04/04/18 05:22 Comments rofecoxib [From Vioxx] AdvReac Nausea Verified 04/04/18 05:22 salmeterol AdvReac Confusion Verified 04/04/18 05:22 [From Advair Diskus] Serotonin 5HT-3 Antagonists AdvReac See Verified 04/04/18 05:22 Comments Sulfa (Sulfonamide AdvReac Nausea Verified 04/04/18 05:22 Antibiotics) tiotropium AdvReac See Verified 04/04/18 05:22 [From Spiriva with Comments HandiHaler] tramadol AdvReac See Verified 04/04/18 05:22 Comments All systems ED: reviewed and negative except as stated. 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 The patient 's medications, allergies, and medical history was reviewed. Family, Social & Surg histories were reviewed and are not relevant except as noted above in the history of present illness, or below in the respective specific section. I have reviewed and agree with all vital signs synchronously available in EMR at the time of this dictation. Times documented are the time of computer entry, are not necessarily the time the event occurred. At least 10 systems reviewed with patient or surrogate during physical exam and are otherwise negative. Physical EXAM: General ~ Constitutional: Conscious & cooperative , generally frail elderly but healthy appearance Head: NCAT Eyes: Sclera white , conjunctiva clear , PERRL, non-icteric ENT : L Tympanic membrane normal color and landmarks , R Tympanic membrane normal color and landmarks, Canals are clear without significant drainage , no obstruction or vesicles , pinna and tragus non tender Nose with pink nasal mucosa that is slightly hyperemic with some mucoid discharge present, nares patent, non tender without bleeding Mouth - mucous membrane moist , pink , no lesions , no trismus Neck - no masses , supple , no cervical spinous process tenderness Pharynx - no exudate , no petechia or obvious lesions , no airway obstruction or stridor, some posterior nasal drainage present Hematologic ~ Lymphatic ~ Immunologic: Lymphadenopathy normal , no petechia , Skin color, nails and pulses unremarkable. Heart ~ Chest: Reg rate , nml Rhythm , nl S1/S2 , no MRG Lungs: Breath sounds equal , clear to auscultation bilaterally with some slight end expiratory wheezing, no rales or rhonchi , no CVA tenderness, speaks in full sentences Gastrointestinal ~ Abd: Soft & non tender , BS + in 4 quads , No HSM or masses , no peritoneal signs GenitoUrinary: Deferred Musculoskeletal ~ Back ~ Extremities: Warm and w/o clubbing , cyanosis , or edema. No point tenderness , good ROM of major joints Neurologic: Cranial nerves grossly intact, good muscle strength , attention good , cooperative , Alert and oriented x4 Psychiatric: Calm , Insight and mood appropriate , Skin: No rashes , good skin turgor , cap refill 2-3 seconds , warm and dry - General Limitations: no limitations General appearance: alert, in distress Course - Reevaluation(s) Time: 16:53 (I discussion with Dr. Mon who agreed to admit the patient for further evaluation and care.) Vital Signs Temperature 98.4 F 06/23/18 13:33 Pulse Rate 73 06/23/18 13:33 Respiratory Rate 20 06/23/18 13:33 Blood Pressure 176/84 06/23/18 13:33 O2 Sat by Pulse Oximetry 100 06/23/18 13:33 Temperature 98.4 F 06/23/18 13:33 Pulse Rate 68 06/23/18 16:14 Respiratory Rate 20 06/23/18 16:14 Blood Pressure 159/100 06/23/18 16:14 O2 Sat by Pulse Oximetry 98 06/23/18 16:14 Oxygen Delivery Oxygen Delivery Room Air Medical Decision Making - MDM Narrative Medical decision making narrative: MDM: History and physical exam is consistent with - COPD bronchitis DDx included multiple etiologies for the symptoms such as - atypical CP, bronchitis COPD, ACS, Pneumonia, pneumothorax, Gerd, AAA, PE XRAYS: copd Critical Care: None Condition and evaluation here was discussed in detail. Labwork, and test results were reviewed with the patient. The patient will take medications as prescribed and then follow up with their Primary care provider or specialist in 2-3 days. Patient instructed to return immediately if there are any problems, they are not improving or they require help or assistance. - Lab Data Result diagrams: 06/23/18 14:30 06/23/18 14:30 Lab Results 06/23/18 06/23/18 06/23/18 Range/Units 14:30 14:30 14:30 WBC 7.0 (4.3-11.1) K/mcL RBC 3.68 L (3.82-4.97) M/mcL Hgb 12.2 (11.5-15.4) g/dL Hct 37.8 (35.3-44.9) % MCV 102.7 H (83.0-100.0) fL MCH 33.2 (28.0-33.3) pg MCHC 32.3 (31.6-35.5) g/dL RDW 11.9 (11.5-14.5) % Plt Count 177 (140-400) K/mcL MPV 9.6 (9.4-12.4) fL Immature Gran % 0.3 (0-4) % Seg Neutrophils % 77.6 % Lymphocytes % 12.3 % Monocytes % 9.3 % Eosinophils % 0.4 % Basophils % 0.1 % Neutrophils # 5.4 (1.6-8.9) K/mcL Lymphocytes # 0.9 (0.6-4.6) K/mcL Monocytes # 0.7 (0.0-1.3) K/mcL Eosinophils # 0.0 (0.0-0.6) K/mcL Basophils # 0.0 (0.0-0.2) K/mcL PT (9.4-12.1) Seconds INR ABG pH (7.32-7.45) pH Units ABG pCO2 (35-45) mmHg ABG pO2 (85-104) mmHg ABG HCO3 (21-27) mEq/L ABG Total CO2 (20-26) mEq/L ABG O2 Saturation (95-98) % ABG Base Excess (-2 to 3) mEq/L Sodium 127 L (136-145) mEq/L Potassium 4.7 (3.5-5.1) mEq/L Chloride 83 L (98-107) mEq/L Carbon Dioxide 41 H* (23-29) mEq/L BUN 18 (8-23) mg/dL Creatinine 0.56 L (0.60-1.20) mg/dL Est GFR ( Amer) > 60 (> 60) Est GFR (Non-Af Amer) > 60 (> 60) BUN/Creatinine Ratio 32 H (6-26) Glucose 134 H (70-105) mg/dL Calculated Osmolality 268 L (280-300) Calcium 9.9 (8.6-10.3) mg/dL Troponin I (< 0.04) ng/mL B-Natriuretic Peptide 651 H (Less than 100) pg/mL Person Notif of Crit 06/23/18 06/23/18 06/23/18 Range/Units 14:30 14:30 14:48 WBC (4.3-11.1) K/mcL RBC (3.82-4.97) M/mcL Hgb (11.5-15.4) g/dL Hct (35.3-44.9) % MCV (83.0-100.0) fL MCH (28.0-33.3) pg MCHC (31.6-35.5) g/dL RDW (11.5-14.5) % Plt Count (140-400) K/mcL MPV (9.4-12.4) fL Immature Gran % (0-4) % Seg Neutrophils % % Lymphocytes % % Monocytes % % Eosinophils % % Basophils % % Neutrophils # (1.6-8.9) K/mcL Lymphocytes # (0.6-4.6) K/mcL Monocytes # (0.0-1.3) K/mcL Eosinophils # (0.0-0.6) K/mcL Basophils # (0.0-0.2) K/mcL PT 10.4 (9.4-12.1) Seconds INR 0.9 ABG pH 7.34 (7.32-7.45) pH Units ABG pCO2 78 H* (35-45) mmHg ABG pO2 91 (85-104) mmHg ABG HCO3 42 H (21-27) mEq/L ABG Total CO2 44 H (20-26) mEq/L ABG O2 Saturation 96 (95-98) % ABG Base Excess 12 H (-2 to 3) mEq/L Sodium (136-145) mEq/L Potassium (3.5-5.1) mEq/L Chloride (98-107) mEq/L Carbon Dioxide (23-29) mEq/L BUN (8-23) mg/dL Creatinine (0.60-1.20) mg/dL Est GFR ( Amer) (> 60) Est GFR (Non-Af Amer) (> 60) BUN/Creatinine Ratio (6-26) Glucose (70-105) mg/dL Calculated Osmolality (280-300) Calcium (8.6-10.3) mg/dL Troponin I < 0.03 (< 0.04) ng/mL B-Natriuretic Peptide (Less than 100) pg/mL Person Notif of [facility] - EKG Data EKG #1 EKG results narrative: EKG shows sinus rhythm with a first-degree AV block. Patient has a ventricular rate of 67. VA interval 211. QRS duration 158. QTc 450. No acute injury pattern is noted. She does have some ST depression in V4 V5 and 6 as well as some T-wave inversions in lead 2 and 3 and aVF patient is currently not having any chest pain
[2018-06-23] MEDS ORDERED: MethylPREDNISolone 40 MG/ML VIAL IM ONE (14:15)
[2018-06-23] MEDS ORDERED: 0.9 % Sodium Chloride 1,000 ML IVC SCH (14:15)
[2018-06-23] MEDS ORDERED: Ipratropium/Albuterol Neb 3 ML IH SCH ×2 (14:15→17:09)
[2018-06-23] MEDS ORDERED: methylPREDNISolone 125 MG/2 ML VIAL IVP ONE (14:18)
[2018-06-23 14:46] LABS: Basophils % 0.1 %; Eosinophils % 0.4 %; Hematocrit 37.8 % (35.3-44.9); Hemoglobin 12.2 g/dL (11.5-15.4); Immature Granulocytes % 0.3 % (0-4); Lymphocytes # 0.9 K/mcL (0.6-4.6); Lymphocytes % 12.3 %; Mean Corpuscular HGB Conc 32.3 g/dL (31.6-35.5); Mean Corpuscular Hemoglobin 33.2 pg (28.0-33.3); Mean Corpuscular Volume 102.7 fL (83.0-100.0); Mean Platelet Volume 9.6 fL (9.4-12.4); Monocytes # 0.7 K/mcL (0.0-1.3); Monocytes % 9.3 %; Neutrophils # 5.4 K/mcL (1.6-8.9); Platelet Count 177 K/mcL (140-400); Red Blood Count 3.68 M/mcL (3.82-4.97); Red Cell Distribution Width 11.9 % (11.5-14.5); Segmented Neutrophils % 77.6 %
[2018-06-23 14:53] LABS: INR 0.9; Prothrombin Time 10.4 Seconds (9.4-12.1)
[2018-06-23 14:54] LABS: ABG Base Excess 12 mEq/L (-2 to 3); ABG HCO3 42 mEq/L (21-27); ABG Oxygen Saturation 96 % (95-98); ABG PCO2 78 mmHg (35-45); ABG PH 7.34 pH Units (7.32-7.45); ABG PO2 91 mmHg (85-104); ABG TCO2 44 mEq/L (20-26)
[2018-06-23 15:18] LABS: BUN/Creatinine Ratio 32 (6-26); Blood Urea Nitrogen 18 mg/dL (8-23); Calcium 9.9 mg/dL (8.6-10.3); Carbon Dioxide 41 mEq/L (23-29); Chloride 83 mEq/L (98-107); Glucose 134 mg/dL (70-105); Osmolality,Calculated 268 (280-300); Potassium 4.7 mEq/L (3.5-5.1); Sodium 127 mEq/L (136-145); eGFR For Non-African Americans > 60 (> 60)
[2018-06-23] MEDS ORDERED: Naloxone 0.4 MG/ML INJ IVP PRN (17:09)
[2018-06-23] MEDS ORDERED: Nitroglycerin 0.4 MG TAB.SUBL SL PRN (17:09)
[2018-06-23] MEDS ORDERED: NON-FORMULARY MEDICATION 1 EACH EACH (Oxygen [Oxygen] 2 L) NS SCH (17:15)
[2018-06-23] MEDS ORDERED: Ipratropium/Albuterol Neb 3 ML IH PRN (18:51)
[2018-06-23] MEDS ORDERED: Levalbuterol Neb 1.25 MG/3 ML IH SCH (20:00)
[2018-06-23] MEDS: *HR* LORazepam 0.5 MG TABLET PO SCH (20:12)
[2018-06-23] MEDS: hydrALAZINE 25 MG TABLET PO SCH (20:13)
[2018-06-23] MEDS ORDERED: Furosemide 40 MG TABLET PO SCH (21:00)
[2018-06-23] MEDS: 0.9 % Sodium Chloride 1,000 ML IVC SCH (21:16)
[2018-06-24] MEDS: methylPREDNISolone 125 MG/2 ML VIAL IVP SCH ×3 (00:25→17:25)
[2018-06-24 05:48] LABS: Hematocrit 35.8 % (35.3-44.9); Hemoglobin 11.4 g/dL (11.5-15.4); Immature Granulocytes % 0.7 % (0-4); Lymphocytes # 0.5 K/mcL (0.6-4.6); Lymphocytes % 8.6 %; Mean Corpuscular HGB Conc 31.8 g/dL (31.6-35.5); Mean Corpuscular Hemoglobin 32.8 pg (28.0-33.3); Mean Corpuscular Volume 102.9 fL (83.0-100.0); Mean Platelet Volume 9.5 fL (9.4-12.4); Monocytes # 0.1 K/mcL (0.0-1.3); Monocytes % 1.4 %; Platelet Count 158 K/mcL (140-400); Red Blood Count 3.48 M/mcL (3.82-4.97); Red Cell Distribution Width 11.8 % (11.5-14.5); Segmented Neutrophils % 89.3 %
[2018-06-24 06:05] LABS: BUN/Creatinine Ratio 33 (6-26); Blood Urea Nitrogen 18 mg/dL (8-23); Calcium 9.2 mg/dL (8.6-10.3); Carbon Dioxide 36 mEq/L (23-29); Chloride 86 mEq/L (98-107); Glucose 172 mg/dL (70-105); Osmolality,Calculated 266 (280-300); Potassium 5.1 mEq/L (3.5-5.1); Sodium 125 mEq/L (136-145); eGFR For Non-African Americans > 60 (> 60)
[2018-06-24] MEDS: PERFOROMIST 20 MCG/2 ML IH SCH ×2 (06:57→18:59)
[2018-06-24] MEDS: hydrALAZINE 25 MG TABLET PO SCH ×2 (09:00→20:39)
[2018-06-24] MEDS ORDERED: Levalbuterol Neb 1.25 MG/3 ML IH SCH (09:00)
[2018-06-24] MEDS: Aspirin Enteric Coated 81 MG Tablet PO SCH (09:00)
[2018-06-24] MEDS: Multivit/Ca/Min/Fe/FA 1 TAB TABLET PO SCH (09:00)
[2018-06-24] MEDS: *HR* LORazepam 0.5 MG TABLET PO SCH ×2 (09:01→20:36)
[2018-06-24] MEDS: Loratadine 10 MG TABLET PO SCH (09:01)
[2018-06-24] MEDS: Metoprolol XL (24 HR) Succ 25 MG TAB.ER.24H PO SCH (09:01)
[2018-06-24] MEDS: Furosemide 40 MG TABLET PO SCH (09:01)
--- NOTE | 2018-06-24 10:03 | Internal Med History&Physical ---
Date of Encounter: 06/24/18 Time of Encounter: 10:00 Assessment and Plan (1) Acute exacerbation of chronic obstructive airways disease Current visit: Yes Status: Acute Patient was admitted through emergency department with exacerbation of COPD. Patient has been treated with series of bronchodilators and started on cortical steroids and appears to be somewhat better this morning with her respiratory effort. Patient noted to continue to have moderate expiratory wheezes throughout her upper silver and fine rales to basilar silver. Patient continues to be somewhat winded while at rest. Review patient's medications show her to be on multiple bronchodilators. 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 Chest x-ray showed no infectious process. Blood gas showed compensated respiratory acidosis with a PCO2 of 78. We will continue on current medications at this time. (2) CAD (coronary artery disease) Current visit: Yes Status: Chronic No acute issues. Patient denies any palpitations or chest discomforts. Vital signs stable. We will continue with current medications. Qualifiers: Coronary Disease-Associated Artery/Lesion type: [place] artery [place] vs. transplanted heart: [place] heart Associated angina: without angina Qualified Code(s): I25.10 - Atherosclerotic heart disease of [place] coronary artery without angina pectoris (3) Hypertension Current visit: Yes Status: Chronic Vital signs remained stable. We will continue with current medications. Qualifiers: Hypertension type: essential hypertension Qualified Code(s): I10 - Essential (primary) hypertension (4) Diabetes Current visit: Yes Status: Chronic Patients glucose on fingersticks remained slightly elevated but less than 200 after starting on cortical steroids. We will continue to monitor glucose and cover with sliding scale. Continue with home medications. We will obtain a hemoglobin A1c on next blood draw, if not already done. 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 Patient currently appears asymptomatic. Patient currently is having normal saline IV fluid for correction. We will continue to monitor sodium with serial labs. (6) Cardiomyopathy Current visit: Yes Status: Acute Patient's admission BNP was 1197. Patient's vital signs currently have been stable. Noted fine rales to lower silver, but no acute process shown on chest x -ray. Medical records showed last echocardiogram in our system was in 2017 and at that time showed an EF of 35%. Has been followed by cardiology. Patient currently denies any chest discomforts or palpitations. We will review current medications and continue home meds. Qualifiers: Cardiomyopathy type: ischemic Qualified Code(s): I25.5 - Ischemic cardiomyopathy Internal Medicine - H&P: HPI Chief complaint: Exacerbation of COPD Admitted From: Home Plans for Post Hospital Care: Home History of present illness: Ms. Currie is a 77 year old female , who was admitted to the emergency department after presenting with respiratory distress. Patient stated that she has had increased dyspnea over the past 4-5 days. Per medical records patient has a long history of progressive COPD. Patient states that her breathing feels slightly improved today since admission, but continues to show moderate expiratory wheezes throughout her upper silver with fine posterior basilar rales. Patient's respiratory rate was 22-24 while at rest. On patient's admission she showed a pH of 7.34, PO2 91, PCO2 78, bicarbonate 42 with a saturation 96%. Patient was started on IV cortical steroids. Chest x-ray was obtained which shows no infectious process. Patient has productive cough but has thick white sputum received. Afebrile. Patient has a long history of COPD, ischemic cardiomyopathy with her last echocardiogram in our system shown in 2017 with a EF of 35%. Patient also has history of CHF, diabetes, hypertension. Patient's admission BNP was 1197. Patient denies any chest discomforts or palpitations. Denies any orthopnea. Past Med Surg Social Fam HX - Past Medical History Source: patient, old records reviewed Medical history: cardiomyopathy, CHF, COPD, diabetes, hyperlipidemia, hypertension, myocardial infarction Additional medical history: Seasonal allergies Psychiatric history: anxiety - Past Surgical History Surgical History: angioplasty/stent, appendectomy, hysterectomy Additional surgical history: Lt thumb surgery, leg stents, angiogram, cardiac stents - Social History Smoking Status: Former smoker Smokeless Tobacco Status: No Alcohol use: none Drug use: none - Family History Father Living Status: Hx Family Cardiac Disorders: Yes Mother Family Member Ethnicity: Non- Living Status: Age at : 62 Hx Family Cardiac Disorders: Yes Hx Family Respiratory Disorders: Yes Hx Family GI Disorders: Yes Internal Medicine - H&P: Meds Aspirin Enteric Coated [Aspirin EC] 81 mg PO DAILY 09/07/15 [History] Calcium Carbonate/Vitamin D3 [Calcium 600-Vit D3 800 Tablet] 1 each PO DAILY 10/22 [History] Clopidogrel [Plavix] 75 mg PO DAILY 09/07/15 [History] HydrALAZINE 50 mg PO BID 09/07/15 [History] Levalbuterol Neb [Xopenex Neb] 1.25 mg IH Q4HR 09/07/15 [History] Loratadine [Claritin] 10 mg PO DAILY 09/07/15 [History] Losartan [Cozaar] 100 mg PO DAILY 09/07/15 [History] Multivitamin [Multi-Day Vitamins] 1 each PO DAILY 09/07/15 [History] Nitroglycerin [Nitrostat] 0.4 mg SL AD PRN 09/07/15 [History] Pravastatin Sodium [Pravachol] 40 mg PO DAILY 09/07/15 [History] Sotalol [Betapace] 80 mg PO Q12HR 09/07/15 [History] LORazepam [Ativan] 0.5 mg PO BID 05/08/16 [History] Metoprolol XL (24 HR) Succ [Toprol Xl] 12.5 mg PO DAILY 05/08/16 [History] Oxygen 2 l NS CONT 05/08/16 [History] GuaiFENesin ER [Mucinex] 600 mg PO BID PRN #20 tbbp.12hr 05/11/16 [Rx] Formoterol Fumarate [Perforomist] 20 mcg IH BID 10/03/16 [History] Acetaminophen [Tylenol] 1,000 mg PO TID 04/04/18 [History] Furosemide [Lasix] 40 mg PO BID #60 tablet 04/07/18 [Rx] Cefdinir [Omnicef] 300 mg PO BID #20 capsule 05/10/18 [Rx] 3 Allergy/AdvReac Type Severity Reaction Status Date / Time JESSICA Inhibitors Allergy See Verified 04/04/18 05:22 Comments budesonide [From Symbicort] Allergy Swelling Verified 04/04/18 05:22 of Lip/Tongue/Throat Cyclobenzaprine Allergy Anaphylaxis Verified 04/04/18 05:22 [From Flexeril] ethacrynic acid Allergy See Verified 04/04/18 05:22 [From Edecrin] Comments lisinopril [From Zestoretic] Allergy See Verified 04/04/18 05:22 Comments moxifloxacin [From Avelox] Allergy See Verified 04/04/18 05:22 Comments amlodipine [From Norvasc] AdvReac Diarrhea Verified 04/04/18 05:22 aspirin AdvReac See Verified 04/04/18 05:22 Comments azithromycin [From Zithromax] AdvReac Diarrhea Verified 04/04/18 05:22 citalopram [From Celexa] AdvReac See Verified 04/04/18 05:22 Comments fluticasone AdvReac Confusion Verified 04/04/18 05:22 [From Advair Diskus] Formoterol [From Dulera] AdvReac Muscle Pain Verified 04/04/18 05:22 gabapentin [From Neurontin] AdvReac Headache Verified 04/04/18 05:22 hydrochlorothiazide AdvReac See Verified 04/04/18 05:22 Comments levofloxacin [From Levaquin] AdvReac See Verified 04/04/18 05:22 Comments losartan [Losartan] AdvReac Diarrhea Verified 04/04/18 05:22 mometasone furoate AdvReac Muscle Pain Verified 04/04/18 05:22 [From Dulera] ofloxacin AdvReac Headache Verified 04/04/18 05:22 prednisone AdvReac See Verified 04/04/18 05:22 Comments rofecoxib [From Vioxx] AdvReac Nausea Verified 04/04/18 05:22 salmeterol AdvReac Confusion Verified 04/04/18 05:22 [From Advair Diskus] Serotonin 5HT-3 Antagonists AdvReac See Verified 04/04/18 05:22 Comments Sulfa (Sulfonamide AdvReac Nausea Verified 04/04/18 05:22 Antibiotics) tiotropium AdvReac See Verified 04/04/18 05:22 [From Spiriva with Comments HandiHaler] tramadol AdvReac See Verified 04/04/18 05:22 Comments All Systems PM: A 10-system review of systems was performed and is negative for pertinent findings except as documented above in the HPI. - Constitutional Constitutional: as per HPI, no chills, no fever(s), no night sweats - EENT Eyes: no change in vision, no discharge, no pain, no photophobia Ears: no ear discharge, no ear pain, no tinnitus Nose, mouth and throat: no dysphagia, no nasal discharge, no neck pain, no sore throat - Cardiovascular Cardiovascular ROS IM: as per HPI, no chest pain, no diaphoresis, no dyspnea, no lightheadedness, no palpitations, no syncope - Respiratory Respiratory: as per HPI, no cough, no dyspnea, no wheezing, no excessive phlegm production - Gastrointestinal Gastrointestinal: as per HPI, no abdominal pain, no diarrhea, no hematemesis, no hematochezia, no melena, no nausea, no vomiting - Genitourinary Genitourinary: as per HPI, no change in urinary stream, no dysuria, no flank pain, no hematuria - Musculoskeletal Musculoskeletal ROS IM: as per HPI, no numbness, no tingling - Integumentary Integumentary IM: as per HPI, no rash, no unusual bruising - Neurological Neurological ROS: as per HPI, no confusion, no convulsions, no focal weakness, no numbness, no tingling, no tremor(s) - Hematologic/Lymphatic Hematologic/Lymphatic: no easy bruising - Constitutional Vitals: Temp Pulse Resp BP Pulse Ox 98.0 F 79 18 158/70 97 06/24/18 06:51 06/24/18 06:51 06/24/18 09:50 06/24/18 04:54 06/24/18 09:50 General appearance: Present: A&O X 3, no acute distress - Head Head exam: Present: atraumatic, normocephalic - Eye Eye exam: Present: PERRL, conjuntiva pink, sclera anicteric Pupils: Present: PERRL - Neck Neck exam general surgery: Present: supple, trachea midline. Absent: lymphadenopathy - Respiratory Respiratory exam: Present: CTAB, rales, wheezes. Absent: accessory muscle use, rhonchi Additional comments: Patient currently has moderate expiratory wheezes throughout her upper silver and fine posterior basilar rales heard. Patient's respiratory effort is slightly labored with respiratory rate of 22-24 while at rest in bed. No use of a sensory muscles noted. Productive cough with thick white sputum received. - Cardiovascular Cardiovascular exam: Present: RRR, +S1, +S2. Absent: diastolic murmur, gallop, rubs, systolic murmur - GI/Abdominal GI/Abdominal exam: Present: normal bowel sounds, soft, no peritoneal signs. Absent: distended, tenderness - Extremities Exam Extremities exam: Present: warm, radial pulses palpable and symmetrical. Absent : calf tenderness, cyanotic, pedal edema - Neurological Exam Neurological exam: Present: CN II-XII intact, oriented X3, no focal deficits. Absent: pronater drift, facial droop, speech deficit - Skin Skin exam: Present: dry, intact Internal Med - H&P Results - Labs CBC & Chem 7: 06/24/18 05:35 06/24/18 05:35 Labs: Short CBC 06/24/18 Range/Units 05:35 WBC 5.6 (4.3-11.1) K/mcL Hgb 11.4 L (11.5-15.4) g/dL Hct 35.8 (35.3-44.9) % Plt Count 158 (140-400) K/mcL Neutrophils # 5.0 (1.6-8.9) K/mcL BMP 06/24/18 05:35 Sodium 125 L Potassium 5.1 Chloride 86 L Carbon Dioxide 36 H BUN 18 Creatinine 0.54 L Glucose 172 H Calcium 9.2 Cardiac Enzymes 06/23/18 06/23/18 06/24/18 Range/Units 17:20 23:45 05:35 Troponin I < 0.03 < 0.03 < 0.03 (< 0.04) ng/mL
[2018-06-24] MEDS: 0.9 % Sodium Chloride 1,000 ML IVC SCH (10:44)
[2018-06-24] MEDS ORDERED: cloNIDine HCl 0.1 MG TABLET PO PRN (11:43)
[2018-06-24] MEDS: Levalbuterol Neb 1.25 MG/3 ML IH PRN ×2 (15:29→21:11)
[2018-06-25] MEDS: methylPREDNISolone 125 MG/2 ML VIAL IVP SCH ×3 (00:07→17:05)
[2018-06-25] MEDS: 0.9 % Sodium Chloride 1,000 ML IVC SCH ×2 (00:07→09:46)
[2018-06-25] MEDS: Levalbuterol Neb 1.25 MG/3 ML IH PRN ×5 (02:30→21:18)
[2018-06-25] MEDS: PERFOROMIST 20 MCG/2 ML IH SCH ×2 (07:08→19:00)
[2018-06-25] MEDS: Aspirin Enteric Coated 81 MG Tablet PO SCH (08:33)
[2018-06-25] MEDS: Multivit/Ca/Min/Fe/FA 1 TAB TABLET PO SCH (08:34)
[2018-06-25] MEDS: *HR* LORazepam 0.5 MG TABLET PO SCH ×2 (08:34→21:15)
[2018-06-25] MEDS: hydrALAZINE 25 MG TABLET PO SCH ×2 (08:35→21:15)
[2018-06-25] MEDS: Loratadine 10 MG TABLET PO SCH (08:35)
[2018-06-25] MEDS: Furosemide 40 MG TABLET PO SCH (08:35)
[2018-06-25] MEDS: Metoprolol XL (24 HR) Succ 25 MG TAB.ER.24H PO SCH (08:36)
[2018-06-25 09:57] LABS: BUN/Creatinine Ratio 43 (6-26); Blood Urea Nitrogen 28 mg/dL (8-23); Carbon Dioxide 36 mEq/L (23-29); Chloride 89 mEq/L (98-107); Glucose 220 mg/dL (70-105); Osmolality,Calculated 270 (280-300); Potassium 5.1 mEq/L (3.5-5.1); Sodium 124 mEq/L (136-145); eGFR For Non-African Americans > 60 (> 60)
[2018-06-25 10:21] LABS: ABG Base Excess 5 mEq/L (-2 to 3); ABG HCO3 34 mEq/L (21-27); ABG Oxygen Saturation 87 % (95-98); ABG PCO2 71 mmHg (35-45); ABG PH 7.29 pH Units (7.32-7.45); ABG PO2 62 mmHg (85-104); ABG TCO2 36 mEq/L (20-26)
[2018-06-25] MEDS ORDERED: Furosemide 40 MG/4 ML VIAL IVP ONE (11:10)
--- NOTE | 2018-06-25 11:17 | Internal Med Progress Note ---
Date of Encounter: 06/25/18 Time of Encounter: 11:15 - Assessment and plan (1) Acute exacerbation of chronic obstructive airways disease Current Visit: Yes Status: Acute Assessment and plan: Continue steroids and inhaled treatments. Continue O2. Monitor. ABG's improving slightly. (2) Hypertension Current Visit: Yes Status: Chronic Assessment and plan: Controlled. Monitor blood pressure. Continue current medication. Qualifiers: Hypertension type: essential hypertension Qualified Code(s): I10 - Essential (primary) hypertension (3) Hyponatremia Current Visit: Yes Status: Acute Assessment and plan: Will continue to monitor labs. Will repeat in the morning. (4) Type 2 diabetes mellitus Current Visit: Yes Status: Chronic Assessment and plan: Fingerstick blood sugar elevated. Likely due to steroids. Will continue to monitor and continue current medications. Qualifiers: Diabetes mellitus roasterman insulin use: without roasterman use Diabetes mellitus complication status: with circulatory complication Diabetes mellitus complication detail: with other circulatory complications Qualified Code(s): E11.59 - Type 2 diabetes mellitus with other circulatory complications (5) Congestive heart failure Current Visit: Yes Status: Chronic Assessment and plan: BMP elevated. Will give Lasix IV times 1 dose. Will repeat labs in the morning. Qualifiers: Qualified Code(s): I50.42 - Chronic combined systolic (congestive) and diastolic (congestive) heart failure - Time Spent With Patient 25 - 35 minutes - Subjective Interval history: Resting in bed. States she is short of breath. Denies cough. Denies wheezing. Denies chest pain. Denies fever chills, nausea vomiting or diarrhea. States she is having visual hallucinations, seeing beads on the wall. Ativan was decreased yesterday. Answers questions appropriately. - Constitutional Vitals: Temp Pulse Resp BP Pulse Ox 97.3 F L 80 17 132/75 96 06/25/18 07:00 06/25/18 07:00 06/25/18 07:00 06/25/18 07:00 06/25/18 09:00 General appearance: Present: cooperative, A&O X 3, no acute distress, answers questions appropriately - Head Head exam: Present: atraumatic, normocephalic - Eye Eye exam: Present: PERRL, conjuntiva pink, sclera anicteric Pupils: Present: PERRL - Neck Neck exam general surgery: Present: supple, trachea midline. Absent: lymphadenopathy - Respiratory Respiratory exam: Present: decreased breath sounds, CTAB. Absent: accessory muscle use, rales, rhonchi, wheezes - Cardiovascular Cardiovascular exam: Present: RRR, +S1, +S2. Absent: diastolic murmur, gallop, rubs, systolic murmur - GI/Abdominal GI/Abdominal exam: Present: normal bowel sounds, soft, no peritoneal signs. Absent: distended, tenderness - Extremities Exam Extremities exam: Present: warm, radial pulses palpable and symmetrical. Absent : calf tenderness, cyanotic, pedal edema - Neurological Exam Neurological exam: Present: CN II-XII intact, oriented X3, no focal deficits. Absent: pronater drift, facial droop, speech deficit - Skin Skin exam: Present: dry, intact Internal Medicine: Result - Labs CBC & Chem 7: 06/24/18 05:35 06/25/18 09:33 Labs: BMP 06/25/18 09:33 Sodium 124 L Potassium 5.1 Chloride 89 L Carbon Dioxide 36 H BUN 28 H Creatinine 0.65 Glucose 220 H Calcium 9.0 - ABG Interpretation ABG results: ABG ABG pH 7.29 pH Units (7.32-7.45) L 06/25/18 10:14 ABG pCO2 71 mmHg (35-45) H* 06/25/18 10:14 ABG pO2 62 mmHg (85-104) L 06/25/18 10:14 ABG O2 Saturation 87 % (95-98) L 06/25/18 10:14 PT/INR, D-dimer PT 10.4 Seconds (9.4-12.1) 06/23/18 14:30 - Impressions Impressions Chest X-Ray 06/25/18 09:17 IMPRESSION: COPD, with a vague opacity at the right lung base which may represent atelectasis or pneumonia. Minimal airspace disease also noted at the left costophrenic angle, though this appears more chronic and could be related to atelectasis or scarring. D/ / Deshawn Fuentes MD / Deshawn Fuentes MD Interpreting Provider: Deshawn Fuentes MD - VTE Reasons for not Prescribing Prophylaxis: Treatment not Indicated - Low risk for VTE Consult Discharge Plan - Plan Referrals: Elizabeth Dyson MD [Primary Care Provider] -
[2018-06-25 15:32] LABS: Basophils % 0.1 %; Hematocrit 35.8 % (35.3-44.9); Hemoglobin 11.4 g/dL (11.5-15.4); Immature Granulocytes % 0.9 % (0-4); Lymphocytes # 0.6 K/mcL (0.6-4.6); Lymphocytes % 5.2 %; Mean Corpuscular HGB Conc 31.8 g/dL (31.6-35.5); Mean Corpuscular Hemoglobin 32.9 pg (28.0-33.3); Mean Corpuscular Volume 103.5 fL (83.0-100.0); Mean Platelet Volume 9.8 fL (9.4-12.4); Monocytes # 0.5 K/mcL (0.0-1.3); Monocytes % 4.7 %; Neutrophils # 9.6 K/mcL (1.6-8.9); Platelet Count 175 K/mcL (140-400); Red Blood Count 3.46 M/mcL (3.82-4.97); Red Cell Distribution Width 11.9 % (11.5-14.5); Segmented Neutrophils % 89.1 %
[2018-06-25 15:45] LABS: Bilirubin,Urine Negative (Negative); Blood,Urine Trace-intact (Negative); Clarity,Urine Clear (Clear); Color,Urine Yellow (Yellow); Glucose,Urine (UA) Normal (Normal); Ketones,Urine Negative (Negative); Leukocyte Esterase,Urine Negative (Negative); Nitrite,Urine Negative (Negative); PH,Urine 5.5 pH Units (5.0-8.0); Protein,Urine Negative (Neg-Trace); Urobilinogen,Urine Normal (Normal)
[2018-06-25 15:54] LABS: RBC,Urine 0-3 per hpf (0-3); Squamous Epithelial Cell,Urine Few per lpf (None-Few); WBC,Urine 0-3 per hpf (0-3)
[2018-06-25 15:55] LABS: Bacteria,Urine Few per hpf (None-Few); Hyaline Casts,Urine Few per lpf (None-Few)
--- NOTE | 2018-06-25 17:34 | Electrocardiograph Report ---
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
--- NOTE | 2018-06-25 17:43 | Electrocardiograph Report ---
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
[2018-06-25] MEDS ORDERED: *HR* Dextrose 50 % in Water (Syg) 50 ML SYRINGE IVP PRN (20:48)
[2018-06-25] MEDS ORDERED: D5% in Water 1,000 ML IVC PRN (20:48)
[2018-06-25] MEDS ORDERED: Dextrose Gel 15 GM/37.5 ML TUBE PO PRN ×2 (20:48)
[2018-06-25] MEDS: Insulin LISPRO 300 UNITS/3 ML VIAL SQ SCH (21:37)
[2018-06-26] MEDS: methylPREDNISolone 125 MG/2 ML VIAL IVP SCH ×3 (00:10→16:32)
[2018-06-26] MEDS: Levalbuterol Neb 1.25 MG/3 ML IH PRN ×2 (03:29→08:21)
[2018-06-26] MEDS: PERFOROMIST 20 MCG/2 ML IH SCH ×2 (06:20→19:09)
[2018-06-26 06:43] LABS: Hematocrit 34.1 % (35.3-44.9); Hemoglobin 10.8 g/dL (11.5-15.4); Immature Granulocytes % 1.7 % (0-4); Lymphocytes # 0.6 K/mcL (0.6-4.6); Lymphocytes % 5.8 %; Mean Corpuscular HGB Conc 31.7 g/dL (31.6-35.5); Mean Corpuscular Hemoglobin 32.7 pg (28.0-33.3); Mean Corpuscular Volume 103.3 fL (83.0-100.0); Mean Platelet Volume 9.7 fL (9.4-12.4); Monocytes # 0.4 K/mcL (0.0-1.3); Monocytes % 3.9 %; Neutrophils # 8.5 K/mcL (1.6-8.9); Nucleated Red Blood Cells 0.2 /100 WBC (0); Platelet Count 173 K/mcL (140-400); Red Cell Distribution Width 11.6 % (11.5-14.5); Segmented Neutrophils % 88.6 %
[2018-06-26 07:06] LABS: BUN/Creatinine Ratio 51 (6-26); Blood Urea Nitrogen 42 mg/dL (8-23); Calcium 9.4 mg/dL (8.6-10.3); Carbon Dioxide 41 mEq/L (23-29); Chloride 84 mEq/L (98-107); Glucose 258 mg/dL (70-105); Osmolality,Calculated 281 (280-300); Potassium 5.3 mEq/L (3.5-5.1); Sodium 126 mEq/L (136-145); eGFR For Non-African Americans > 60 (> 60)
[2018-06-26] MEDS: Multivit/Ca/Min/Fe/FA 1 TAB TABLET PO SCH (08:32)
[2018-06-26] MEDS: Loratadine 10 MG TABLET PO SCH (08:32)
[2018-06-26] MEDS: Metoprolol XL (24 HR) Succ 25 MG TAB.ER.24H PO SCH (08:32)
[2018-06-26] MEDS: Aspirin Enteric Coated 81 MG Tablet PO SCH (08:34)
[2018-06-26] MEDS: Furosemide 40 MG TABLET PO SCH (08:34)
[2018-06-26] MEDS: *HR* LORazepam 0.5 MG TABLET PO SCH ×2 (08:35→20:36)
[2018-06-26] MEDS: hydrALAZINE 25 MG TABLET PO SCH ×2 (08:35→20:37)
[2018-06-26] MEDS: Insulin LISPRO 300 UNITS/3 ML VIAL SQ SCH ×4 (08:36→20:46)
[2018-06-26 09:34] LABS: ABG Base Excess 11 mEq/L (-2 to 3); ABG HCO3 40 mEq/L (21-27); ABG Oxygen Saturation 87 % (95-98); ABG PCO2 84 mmHg (35-45); ABG PH 7.29 pH Units (7.32-7.45); ABG PO2 63 mmHg (85-104); ABG TCO2 43 mEq/L (20-26)
[2018-06-26] MEDS ORDERED: Thiamine (B-1) 100 MG in D5% in Water 50 ML IVPB SCH (10:00)
--- NOTE | 2018-06-26 12:59 | Internal Med Progress Note ---
Date of Encounter: 06/26/18 Time of Encounter: 12:57 - Assessment and plan (1) Acute exacerbation of chronic obstructive airways disease Current Visit: Yes Status: Acute Assessment and plan: She might have respiratory abnormalities with CO2 retention causing her confusion. A repeat chest x-ray is unremarkable in terms of the worsening heart failure. A CT scan of the brain failed to show any lesions that would cause her to have mental status changes. We will try a BiPAP to lower her PCO2 and if this improves mental status and/or she tolerates this well, we will continue to follow. If not, we will consider transferring her to a higher level of care. (2) Hyperkalemia Current Visit: Yes Status: Acute Assessment and plan: We will hold her losartan. She has a stated allergy to osmin inhibitors which she is not able to expound upon at this time. We will follow. (3) CAD (coronary artery disease) Current Visit: Yes Status: Chronic Assessment and plan: This is currently stable. Qualifiers: Coronary Disease-Associated Artery/Lesion type: [place] artery [place] vs. transplanted heart: [place] heart Associated angina: without angina Qualified Code(s): I25.10 - Atherosclerotic heart disease of [place] coronary artery without angina pectoris - Subjective Interval history: Patient is making no sense. She changes her current situation based upon responses to questions. She is obviously confused. For this reason, review of systems is not obtained. I spoke at length with her daughter. Addendum 1420: Patient has tolerated BiPAP so will recheck ABGs. Saturation has been in the low 90s. She is more alert and appropriate than this morning. Nursing is concerned about her dental status and wanting to have an as needed sedative. Will use Haldol because of respiratory suppression with Ativan. - Constitutional Vitals: Temp Pulse Resp BP Pulse Ox 98.2 F 76 17 134/66 95 06/26/18 11:27 06/26/18 11:27 06/26/18 11:27 06/26/18 11:27 06/26/18 11:27 General appearance: Present: cooperative, answers questions appropriately Exam: Examination: (Except as mentioned above): General: In no apparent distress. Alert but disoriented. Nondiaphoretic. Head: Atraumatic and normocephalic. Respiratory: No use of accessory muscles. Lungs are clear throughout. Airflow is diminished but not as before - better. Cardiovascular: Regular rate and rhythm without murmur appreciated. Abdomen: Bowel sounds are normal. No hepatosplenomegaly mass or tenderness appreciated. Obese and therefore difficult to palpate deeply. Extremities: No cyanosis clubbing or edema. Skin: Warm and non-diaphoretic with no new lesions noted. Internal Medicine: Result - Labs CBC & Chem 7: 06/26/18 06:35 06/26/18 06:35 Labs: Short CBC 06/25/18 06/26/18 Range/Units 15:27 06:35 WBC 10.8 D 9.6 (4.3-11.1) K/mcL Hgb 11.4 L 10.8 L (11.5-15.4) g/dL Hct 35.8 34.1 L (35.3-44.9) % Plt Count 175 173 (140-400) K/mcL Neutrophils # 9.6 H 8.5 (1.6-8.9) K/mcL BMP 06/26/18 06:35 Sodium 126 L Potassium 5.3 H Chloride 84 L Carbon Dioxide 41 H* BUN 42 H Creatinine 0.82 Glucose 258 H Calcium 9.4 Urine 06/25/18 Range/Units 15:30 Urine Color Yellow (Yellow) Urine Clarity Clear (Clear) Urine pH 5.5 (5.0-8.0) pH Units Ur Specific [place] 1.010 (1.010-1.025) Urine Protein Negative (Neg-Trace) mg/dL Urine Glucose (UA) Normal (Normal) mg/dL - ABG Interpretation ABG results: ABG ABG pH 7.29 pH Units (7.32-7.45) L 06/26/18 09:28 ABG pCO2 84 mmHg (35-45) H* 06/26/18 09:28 ABG pO2 63 mmHg (85-104) L 06/26/18 09:28 ABG O2 Saturation 87 % (95-98) L 06/26/18 09:28 PT/INR, D-dimer PT 10.4 Seconds (9.4-12.1) 06/23/18 14:30 - Impressions Impressions Chest X-Ray 06/26/18 09:21 IMPRESSION: Stable evidence of COPD with pulmonary artery hypertension. No acute abnormality. D/ / 06/26/2018 09:57:29 Fredy Salas MD / Sonam Mcclendon Interpreting Provider: Fredy Salas MD Head CT 06/26/18 09:29 IMPRESSION: Stable CT scan of the head without acute intracranial abnormality. D/ / Deshawn Fuentes MD / Deshawn Fuentes MD Interpreting Provider: Deshawn Fuentes MD - VTE Reasons for not Prescribing Prophylaxis: Treatment not Indicated - Low risk for VTE Consult Discharge Plan - Plan Referrals: Elizabeth Dyson MD [Primary Care Provider] -
[2018-06-26 15:10] LABS: ABG Base Excess 14 mEq/L (-2 to 3); ABG HCO3 44 mEq/L (21-27); ABG Oxygen Saturation 98 % (95-98); ABG PCO2 92 mmHg (35-45); ABG PH 7.29 pH Units (7.32-7.45); ABG PO2 124 mmHg (85-104); ABG TCO2 47 mEq/L (20-26)
[2018-06-26] MEDS: Thiamine (B-1) 100 MG in D5% in Water 50 ML IVPB SCH (17:11)
[2018-06-26 23:22] LABS: ABG Base Excess 15 mEq/L (-2 to 3); ABG HCO3 43 mEq/L (21-27); ABG Oxygen Saturation 93 % (95-98); ABG PCO2 73 mmHg (35-45); ABG PH 7.38 pH Units (7.32-7.45); ABG PO2 72 mmHg (85-104); ABG TCO2 45 mEq/L (20-26)
[2018-06-27] MEDS: methylPREDNISolone 125 MG/2 ML VIAL IVP SCH ×4 (01:17→18:06)
[2018-06-27] MEDS: PERFOROMIST 20 MCG/2 ML IH SCH ×2 (06:14→18:06)
[2018-06-27] MEDS: *HR* LORazepam 0.5 MG TABLET PO SCH (06:38)
[2018-06-27 09:24] LABS: Hematocrit 28.5 % (35.3-44.9); Hemoglobin 8.9 g/dL (11.5-15.4); Immature Granulocytes % 1.2 % (0-4); Lymphocytes # 0.5 K/mcL (0.6-4.6); Lymphocytes % 6.8 %; Mean Corpuscular HGB Conc 31.2 g/dL (31.6-35.5); Mean Corpuscular Hemoglobin 32.4 pg (28.0-33.3); Mean Corpuscular Volume 103.6 fL (83.0-100.0); Monocytes # 0.5 K/mcL (0.0-1.3); Monocytes % 6.6 %; Neutrophils # 6.5 K/mcL (1.6-8.9); Nucleated Red Blood Cells 0.3 /100 WBC (0); Platelet Count 143 K/mcL (140-400); Red Blood Count 2.75 M/mcL (3.82-4.97); Red Cell Distribution Width 11.9 % (11.5-14.5); Segmented Neutrophils % 85.4 %
[2018-06-27] MEDS: Insulin LISPRO 300 UNITS/3 ML VIAL SQ SCH ×4 (09:52→20:38)
[2018-06-27] MEDS: hydrALAZINE 25 MG TABLET PO SCH ×2 (09:55→20:38)
[2018-06-27] MEDS: Aspirin Enteric Coated 81 MG Tablet PO SCH (09:55)
[2018-06-27] MEDS: Furosemide 40 MG TABLET PO SCH (09:55)
[2018-06-27] MEDS: Loratadine 10 MG TABLET PO SCH (09:55)
[2018-06-27] MEDS: Multivit/Ca/Min/Fe/FA 1 TAB TABLET PO SCH (09:56)
[2018-06-27] MEDS: Metoprolol XL (24 HR) Succ 25 MG TAB.ER.24H PO SCH (09:56)
[2018-06-27 09:58] LABS: Alanine Aminotransferase 46 Units/L (7-52); Albumin 3.4 g/dL (3.5-5.7); Albumin/Globulin Ratio 1.7 (1.1-2.2); Alkaline Phosphatase 35 Units/L (34-104); Aspartate Amino Transferase 16 Units/L (13-39); BUN/Creatinine Ratio 73 (6-26); Bilirubin,Total 0.3 mg/dL (0.3-1.0); Blood Urea Nitrogen 58 mg/dL (8-23); Calcium 9.3 mg/dL (8.6-10.3); Carbon Dioxide 44 mEq/L (23-29); Chloride 84 mEq/L (98-107); Glucose 245 mg/dL (70-105); Magnesium 2.1 mg/dL (1.6-2.6); Osmolality,Calculated 294 (280-300); Sodium 130 mEq/L (136-145); Total Protein 5.4 g/dL (6.4-8.9); eGFR For Non-African Americans > 60 (> 60)
[2018-06-27 10:35] LABS: ABG Base Excess 15 mEq/L (-2 to 3); ABG HCO3 45 mEq/L (21-27); ABG Oxygen Saturation 78 % (95-98); ABG PCO2 99 mmHg (35-45); ABG PH 7.27 pH Units (7.32-7.45); ABG PO2 52 mmHg (85-104); ABG TCO2 48 mEq/L (20-26)
[2018-06-27] MEDS ORDERED: *HR* LORazepam 2 MG/ML VIAL IVP ONE (10:39)
--- NOTE | 2018-06-27 10:46 | Internal Med Progress Note ---
Date of Encounter: 06/27/18 Time of Encounter: 10:43 - Assessment and plan (1) Acute exacerbation of chronic obstructive airways disease Current Visit: Yes Status: Acute Assessment and plan: Patient tolerated status continues to decline and shows to be in respiratory failure with today's blood gas showing a PCO2 of 99, pH of 7.27 and a PO2 of only 52. Patient remains on BiPAP at 14/8 and a backup rate of 14, but continues to be tachypneic with shallow respirations of 28-32. We will continue with current plan of supportive care. Considerations of transfer was made, but family have now stated that they wanted to consider changing her CODE STATUS due to her progressive very state. We will continue with current plan of care and medications. We will discuss with Dr. Coats who has been in conference with family. (2) Hypertension Current Visit: Yes Status: Chronic Assessment and plan: Vital signs have remained stable with most recent systolic at 121. We will continue with current medications. Qualifiers: Hypertension type: essential hypertension Qualified Code(s): I10 - Essential (primary) hypertension (3) Diabetes Current Visit: Yes Status: Chronic Assessment and plan: Patient continues to have poorly controlled glucose levels due to being on cortical steroids. We will continue with sliding scale coverage and current long-acting medications. 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 Patient with chronic hyponatremia due to CHF and cardiomyopathy. We will continue to monitor with serial labs. (5) Cardiomyopathy Current Visit: Yes Status: Acute Assessment and plan: Patient's most recent BNP was at 2960. Patient long history of CHF and cardiomyopathy. Patient also and respiratory failure. We will continue with current plan of care, which will be M plus pending family's decision on CODE STATUS. Qualifiers: Cardiomyopathy type: ischemic Qualified Code(s): I25.5 - Ischemic cardiomyopathy - Subjective Interval history: Patient has had progressive lethargy over the past 24 hours. Patient currently remains lethargic but can be awakened with physical stimuli. Once awake and patient was unable to follow any commands but was noted to move all extremities by withdrawal. Patient's pulmonary status has progressively worsened over the past 2 days with her current respiratory rate and very shallow at 28-32/m. Patient currently remains on BiPAP with a setting of 14/8 and a backup rate of 14, with noted minimal expiratory volumes on the BiPAP. Patient's own respiratory volumes are very shallow. Patient's family are at bedside and are currently stating that patient had made statements of wanting to change her DNR status. Family currently are discussing possibility of making a DNR status change. - Constitutional Vitals: Temp Pulse Resp BP Pulse Ox 98.4 F 73 20 115/67 88 06/27/18 08:50 06/27/18 08:50 06/27/18 08:50 06/27/18 08:50 06/27/18 08:50 General appearance: Present: answers questions appropriately Exam: Currently with limited exam on patient's orientation due to lethargy. - Head Head exam: Present: atraumatic, normocephalic - Eye Eye exam: Present: PERRL, conjuntiva pink, sclera anicteric Pupils: Present: PERRL Additional comments: Pupils are equal and reactive to light but no tracking noted. 3 mm bilateral. No spontaneous eye opening. Patient does open eyes to noxious stimuli - Neck Neck exam general surgery: Present: supple, trachea midline. Absent: lymphadenopathy - Respiratory Respiratory exam: Present: accessory muscle use, CTAB, wheezes. Absent: rales, rhonchi Additional comments: Patient's lungs show slight expiratory wheeze to upper silver but otherwise are diminished throughout. Respiratory rate is tachypneic at 28-32/m with very shallow breaths. Currently on BiPAP with setting 14/8 and backup rate of 14. Noted slight sensory muscle use during respirations. - Cardiovascular Cardiovascular exam: Present: RRR, +S1, +S2. Absent: diastolic murmur, gallop, rubs, systolic murmur Additional comments: Tachycardic and distant - GI/Abdominal GI/Abdominal exam: Present: normal bowel sounds, soft, no peritoneal signs. Absent: distended, tenderness - Extremities Exam Extremities exam: Present: warm, radial pulses palpable and symmetrical. Absent : calf tenderness, cyanotic, pedal edema - Neurological Exam Neurological exam: Present: CN II-XII intact. Absent: pronater drift, facial droop, speech deficit Additional comments: Patient remains lethargic but does open eyes to noxious stimuli. Patient noted to have fairly quick and equal withdrawal to extremities. Pupils are equal and reactive to light at 3 mm, but no tracking noted. No deviations. Patient follows no commands. - Skin Skin exam: Present: dry, intact Internal Medicine: Result - Labs CBC & Chem 7: 06/27/18 09:15 06/27/18 09:15 Labs: Short CBC 06/27/18 Range/Units 09:15 WBC 7.6 (4.3-11.1) K/mcL Hgb 8.9 L D (11.5-15.4) g/dL Hct 28.5 L (35.3-44.9) % Plt Count 143 (140-400) K/mcL Neutrophils # 6.5 (1.6-8.9) K/mcL BMP 06/27/18 09:15 Sodium 130 L Potassium 5.0 Chloride 84 L Carbon Dioxide 44 H* BUN 58 H Creatinine 0.79 Glucose 245 H Calcium 9.3 Liver Function 06/27/18 Range/Units 09:15 Total Bilirubin 0.3 (0.3-1.0) mg/dL AST 16 (13-39) Units/L ALT 46 (7-52) Units/L Alkaline Phosphatase 35 (34-104) Units/L Albumin 3.4 L (3.5-5.7) g/dL - ABG Interpretation ABG results: ABG ABG pH 7.27 pH Units (7.32-7.45) L 06/27/18 10:30 ABG pCO2 99 mmHg (35-45) H* 06/27/18 10:30 ABG pO2 52 mmHg (85-104) L 06/27/18 10:30 ABG O2 Saturation 78 % (95-98) L 06/27/18 10:30 PT/INR, D-dimer PT 10.4 Seconds (9.4-12.1) 06/23/18 14:30 - Impressions Impressions Chest X-Ray 06/26/18 09:21 IMPRESSION: Stable evidence of COPD with pulmonary artery hypertension. No acute abnormality. D/ / 06/26/2018 09:57:29 Fredy Salas MD / Sonam Mcclendon Interpreting Provider: Fredy Salas MD Chest X-Ray 06/27/18 08:59 IMPRESSION: 1. Stable chest. No acute cardiopulmonary abnormality. 2. Hyperinflation compatible with COPD. 3. Mild cardiomegaly. Pulmonary artery enlargement suggesting pulmonary hypertension. D/ / Donna Young MD / Donna Young MD Interpreting Provider: Donna Young MD - VTE Reasons for not Prescribing Prophylaxis: Treatment not Indicated - Low risk for VTE Consult Discharge Plan - Plan Referrals: Elizabeth Dyson MD [Primary Care Provider] -
[2018-06-27] MEDS: Thiamine (B-1) 100 MG in D5% in Water 50 ML IVPB SCH (10:57)
[2018-06-27 13:39] LABS: ABG Base Excess 17 mEq/L (-2 to 3); ABG HCO3 46 mEq/L (21-27); ABG Oxygen Saturation 97 % (95-98); ABG PCO2 78 mmHg (35-45); ABG PH 7.38 pH Units (7.32-7.45); ABG PO2 102 mmHg (85-104); ABG TCO2 48 mEq/L (20-26)
--- NOTE | 2018-06-27 14:10 | Discharge Summary ---
Orders not resulted at time of discharge: Pending orders 06/26/18 12:28 MMA (VIT B12 STATUS) Routine 06/27/18 10:20 Fecal Hemoccult [Occult Blood,Stool] [BF] Routine Date of Encounter: 06/27/18 Time of Encounter: 14:03 - Discharge Diagnosis (1) Acute exacerbation of chronic obstructive airways disease Priority: Primary Status: Acute Comments: Patient was admitted for exacerbation of COPD. Patient's disease process has progressed over the during her stay at this facility. Over the past 48 hours patient's pulmonary status has regressed patient showing increased lethargy and increased hypercapnia on hers series of ABGs. Patient's last ABG showed a PCO2 of 99, pH of 7.27 and a PCO2 of 52. Patient was placed on a BiPAP yesterday with a pressure of 14/8 and a backup rate of 14. Patient continued to show tachypnea with shallow respiratory rate at 28-32/m. Chest x-ray was obtained which showed no signs of infectious process or pulmonary edema. Patient has a long history of cardiomyopathy and CHF with her last BNP at 2900. With multiple measures taken it was decided the patient has not progressed and will be transferred to [facility] for further evaluation and treatment. He was made a DNR CCA (2) Hypertension Priority: Secondary Status: Chronic Comments: Patient's vital signs have remained stable during her stay at this facility and will be continued on her current medications at time of discharge Qualifiers: Hypertension type: essential hypertension Qualified Code(s): I10 - Essential (primary) hypertension (3) Diabetes Priority: Secondary Status: Chronic Comments: Patients glucose has been uncontrolled on her series of fingersticks, likely secondary to her cortical steroids had been in use. We will continue coverage with sliding scale. Qualifiers: Diabetes mellitus type: type 2 Diabetes mellitus snf insulin use: unspecified snf insulin use status Diabetes mellitus complication status : without complication Qualified Code(s): E11.9 - Type 2 diabetes mellitus without complications (4) Hyponatremia Priority: Secondary Status: Acute Comments: Patient continues with hyponatremia likely secondary to her advanced CHF. Patient's sodium has increased somewhat with most recent labs showing 130 (5) Cardiomyopathy Priority: Secondary Status: Acute Comments: Patient with long history of cardiomyopathy and CHF. Medical records show patient was offered AICD in the past by cardiology but has refused. Patient's BNP has steadily increased with the most recent at 2900. Most recent chest x- ray did not show any signs of pulmonary edema, but did show cardiomegaly. Patient being transferred to [facility] for further evaluation and treatment Qualifiers: Cardiomyopathy type: ischemic Qualified Code(s): I25.5 - Ischemic cardiomyopathy Hospital course: Ms. Currie is a 77 year old female was admitted through the emergency department to this facility for exacerbation of COPD. Patient has a long history of progressive COPD, along with advanced CHF secondary to cardio myopathy. Patient was treated with bronchodilars bronchodilators and steroids and after admission and appeared to be progressing during her first few days at facility. Over the past several days patient has progressively grown worse with her pulmonary status. Over the past 24 hours patient has had increased lethargy with her blood gases showing increase hypercapnia. Patient was well compensated on her blood gases but throughout the series of blood gases drawn her PCO2 has increased with the last ABG showed a PCO2 of 99, pH of 7.27 and a PO2 of 52. Patient has been on a BiPAP over the past 24 hours with minimal improvement. Patient's BiPAP setting was 14/8 with a backup rate of 14. Patient's respirations have been shallow with a rate of 28-32. Multiple chest x -rays have been done during her stay at this facility which showed no infectious process or pulmonary edema. Patient had a CT of the head which was negative. Patient does have a long history of CHF with her last BNP at 2900. Patient's family were present have requested patient to be made a DNR CCA. Patient's condition has progressively worsened over the past few days and it was decided patient would be transferred to [facility] for further evaluation and treatment. Discharge discussed with: patient, family Time spent discussing smoking cessation with patient: 3 to 10 minutes - Time Spent with Patient Total time spent providing and/or coordinating discharge services: Less than 30 minutes - Discharge Medications Home Medications: Aspirin Enteric Coated [Aspirin EC] 81 mg PO DAILY 09/07/15 [History] Calcium Carbonate/Vitamin D3 [Calcium 600-Vit D3 800 Tablet] 1 each PO DAILY 10/22 [History] Clopidogrel [Plavix] 75 mg PO DAILY 09/07/15 [History] HydrALAZINE 50 mg PO BID 09/07/15 [History] Levalbuterol Neb [Xopenex Neb] 1.25 mg IH Q4HR 09/07/15 [History] Loratadine [Claritin] 10 mg PO DAILY 09/07/15 [History] Losartan [Cozaar] 100 mg PO DAILY 09/07/15 [History] Multivitamin [Multi-Day Vitamins] 1 each PO DAILY 09/07/15 [History] Nitroglycerin [Nitrostat] 0.4 mg SL AD PRN 09/07/15 [History] Pravastatin Sodium [Pravachol] 40 mg PO DAILY 09/07/15 [History] Sotalol [Betapace] 80 mg PO Q12HR 09/07/15 [History] LORazepam [Ativan] 0.5 mg PO BID 05/08/16 [History] Metoprolol XL (24 HR) Succ [Toprol Xl] 12.5 mg PO DAILY 05/08/16 [History] Oxygen 2 l NS CONT 05/08/16 [History] GuaiFENesin ER [Mucinex] 600 mg PO BID PRN #20 tbbp.12hr 05/11/16 [Rx] Formoterol Fumarate [Perforomist] 20 mcg IH BID 10/03/16 [History] Acetaminophen [Tylenol] 1,000 mg PO TID 04/04/18 [History] Furosemide [Lasix] 40 mg PO BID #60 tablet 04/07/18 [Rx] Cefdinir [Omnicef] 300 mg PO BID #20 capsule 05/10/18 [Rx] Allergies/Adverse Reactions: 3 Allergy/AdvReac Type Severity Reaction Status Date / Time JESSICA Inhibitors Allergy See Verified 04/04/18 05:22 Comments budesonide [From Symbicort] Allergy Swelling Verified 04/04/18 05:22 of Lip/Tongue/Throat Cyclobenzaprine Allergy Anaphylaxis Verified 04/04/18 05:22 [From Flexeril] ethacrynic acid Allergy See Verified 04/04/18 05:22 [From Edecrin] Comments lisinopril [From Zestoretic] Allergy See Verified 04/04/18 05:22 Comments moxifloxacin [From Avelox] Allergy See Verified 04/04/18 05:22 Comments amlodipine [From Norvasc] AdvReac Diarrhea Verified 04/04/18 05:22 aspirin AdvReac See Verified 04/04/18 05:22 Comments azithromycin [From Zithromax] AdvReac Diarrhea Verified 04/04/18 05:22 citalopram [From Celexa] AdvReac See Verified 04/04/18 05:22 Comments fluticasone AdvReac Confusion Verified 04/04/18 05:22 [From Advair Diskus] Formoterol [From Dulera] AdvReac Muscle Pain Verified 04/04/18 05:22 gabapentin [From Neurontin] AdvReac Headache Verified 04/04/18 05:22 hydrochlorothiazide AdvReac See Verified 04/04/18 05:22 Comments levofloxacin [From Levaquin] AdvReac See Verified 04/04/18 05:22 Comments losartan [Losartan] AdvReac Diarrhea Verified 04/04/18 05:22 mometasone furoate AdvReac Muscle Pain Verified 04/04/18 05:22 [From Dulera] ofloxacin AdvReac Headache Verified 04/04/18 05:22 prednisone AdvReac See Verified 04/04/18 05:22 Comments rofecoxib [From Vioxx] AdvReac Nausea Verified 04/04/18 05:22 salmeterol AdvReac Confusion Verified 04/04/18 05:22 [From Advair Diskus] Serotonin 5HT-3 Antagonists AdvReac See Verified 04/04/18 05:22 Comments Sulfa (Sulfonamide AdvReac Nausea Verified 04/04/18 05:22 Antibiotics) tiotropium AdvReac See Verified 04/04/18 05:22 [From Spiriva with Comments HandiHaler] tramadol AdvReac See Verified 04/04/18 05:22 Comments Date of admission: 06/24/18 15:50 Primary care physician: Elizabeth Dyson Discharging clinician: Sonny Coats - Constitutional Vitals: Temp Pulse Resp BP Pulse Ox 97.6 F 59 25 129/64 98 06/27/18 12:31 06/27/18 12:31 06/27/18 12:31 06/27/18 12:31 06/27/18 12:31 Exam: Patient remains lethargic and unable to assess her orientation. Patient is easily awakened with noxious stimuli but only has one to 2 word answers. - Head Head exam: Present: atraumatic, normocephalic - Eye Eye exam: Present: PERRL, conjuntiva pink, sclera anicteric Pupils: Present: PERRL - Neck Neck exam general surgery: Present: supple, trachea midline. Absent: lymphadenopathy - Respiratory Respiratory exam: Present: CTAB, wheezes. Absent: accessory muscle use, rales, rhonchi Additional comments: Patient continues to have slight expiratory wheeze to upper fills and otherwise is diminished throughout lower silver. Patient remains on BiPAP with setting of 14/8 with a backup rate of 14. Patient's respiratory rate remains at 28-32 and shallow. - Cardiovascular Cardiovascular exam: Present: RRR, +S1, +S2. Absent: diastolic murmur, gallop, rubs, systolic murmur - GI/Abdominal GI/Abdominal exam: Present: normal bowel sounds, soft, no peritoneal signs. Absent: distended, tenderness - Extremities Exam Extremities exam: Present: warm, radial pulses palpable and symmetrical. Absent : calf tenderness, cyanotic, pedal edema - Neurological Exam Neurological exam: Present: CN II-XII intact, oriented X3, no focal deficits. Absent: pronater drift, facial droop, speech deficit - Skin Skin exam: Present: dry, intact - Patient Status Disposition: Transfer Critical Access Hosp Condition: Serious Functional capacity at discharge: bed bound Overall status at discharge: other - Discharge Instructions - Diet and Activity Activity: increase activity as tolerated Diet: advance to your usual diet - VTE Reasons for not Prescribing Prophylaxis: Treatment not Indicated - Low risk for VTE
[2018-06-27 19:34] VITALS: BP 151/65
== END 2018-06-27 21:10 | disposition critical access hospital (66) | DRG 190 ==
LOC: EMEROOGRE 13:32 → INPGRE 13:32
PROVIDERS: ADMIT Internal Medicine; ATTEND Internal Medicine